=== PATIENT | male | born 2000 | race African-American/Black ===

== ENCOUNTER → 2019-01-08 | Outpatient (CLI) | payer MEDICAID ==
[2019-01-08 18:29] LABS: ALBUMIN 5.8 g/dL (3.5-5.0); ALKALINE PHOSPHATASE 126 U/L (38-126); ASPARTATE AMINO TRANSFERASE 39 U/L (17-59); BILIRUBIN,DIRECT 0.6 mg/dL (0.0-0.4); BILIRUBIN,TOTAL 3.4 mg/dL (0.2-1.3); BLOOD UREA NITROGEN 45 mg/dL (7-20); CALCIUM 10.9 mg/dL (8.4-10.2); CARBON DIOXIDE 28 mmol/L (22-30); CHLORIDE 86 mmol/L (98-107); GLUCOSE 105 mg/dL (75-110); POTASSIUM 3.7 mmol/L (3.6-5.0); TOTAL PROTEIN 9.9 g/dL (6.3-8.2)
[2019-01-08 18:31] LABS: ANION GAP 25 (5-19)
[2019-01-08 19:30] LABS: CHLAM PCR DETECTED (NOT DETECT)
[2019-01-09 17:28] LABS: ABSOLUTE BASOPHILS # (AUTO) 0.1 10^3/uL (0.0-0.2); ABSOLUTE LYMPHOCYTES (AUTO) 2.5 10^3/uL (0.5-4.7); ABSOLUTE MONOCYTES (AUTO) 1.1 10^3/uL (0.1-1.4); BASOPHILS % (AUTO) 1.2 % (0-2); EOSINOPHILS % (AUTO) 0.2 % (0-6); HEMATOCRIT 59.8 % (37.9-51.0); LYMPHOCYTES % (AUTO) 32.6 % (13-45); MEAN CORPUSCULAR HEMOGLOBIN 29.6 pg (27.0-33.4); MEAN CORPUSCULAR HGB CONC 34.5 g/dL (32.0-36.0); MEAN CORPUSCULAR VOLUME 86 fl (80-97); MONOCYTES % (AUTO) 14.8 % (3-13); PLATELET COUNT 344 10^3/uL (150-450); RED BLOOD COUNT 6.98 10^6/uL (4.35-5.55); RED CELL DISTRIBUTION WIDTH 13.4 % (11.5-14.0); SEGMENTED NEUTROPHILS % (AUTO) 51.2 % (42-78); TOTAL CELLS COUNTED % (AUTO) 100 %; WHITE BLOOD COUNT 7.7 10^3/uL (4.0-10.5)
[2019-01-12 12:14] LABS: HEMOGLOBIN 20.6 g/dL (13.5-17.0)
== END ==
LOC: OD 13:38
PROVIDERS: ATTEND Nurse Practitioner Acute Care
DX: N52.8 Other male erectile dysfunction (principal); R11.2 Nausea with vomiting, unspecified
CPT/HCPCS: 36415; 80053; 83690; 85025; 87491; 87591

== ENCOUNTER → 2019-01-12 | Outpatient (CLI) | payer MEDICAID ==
[2019-01-12 15:41] LABS: ANION GAP 9 (5-19); BLOOD UREA NITROGEN 10 mg/dL (7-20); CALCIUM 9.1 mg/dL (8.4-10.2); CARBON DIOXIDE 25 mmol/L (22-30); CHLORIDE 102 mmol/L (98-107); GLUCOSE 87 mg/dL (75-110); POTASSIUM 4.5 mmol/L (3.6-5.0)
== END ==
LOC: OD 14:27
PROVIDERS: ATTEND Nurse Practitioner Acute Care
DX: R11.2 Nausea with vomiting, unspecified (principal)
CPT/HCPCS: 36415; 80048

== ENCOUNTER 2019-04-30 21:49 | Emergency (ER) | payer MEDICAID ==
[2019-04-30] MEDS ORDERED: ONDANSETRON 4 MG TAB.RAPDIS PO ONE (22:33)
[2019-04-30] MEDS ORDERED: NORMAL SALINE 1000 ML 1,000 ML IV PRN (22:33)
--- NOTE | 2019-04-30 22:34 | ER Document Report ---
ED Medical Screen (RME) - General Chief Complaint: Nausea/Vomiting Stated Complaint: VOMITING AND STOMACH PAIN Time Seen by Provider: 04/30/19 22:32 Primary Care Provider: KARON LEONARD NP [Primary Care Provider] - Follow up as needed TRAVEL OUTSIDE OF THE [place] IN LAST 30 DAYS: No - HPI Notes: 04/30/19 22:33 Patient is a 18-year-old male no significant past medical history presents complaint of having nausea, vomiting, and generalized abdominal pain that began today. Denies drug allergies. No fever, chest pain, shortness of breath, dysuria. I have treated and performed a rapid initial assessment of this patient. A comprehensive ED assessment and evaluation of the patient, analysis of test results and completion of medical decision making process will be conducted by additional ED providers. PHYSICAL EXAMINATION: GENERAL: Well-appearing, well-nourished and in no acute distress. A&Ox4. Answers questions appropriately. Abdomen: Limited exam in triage, mild generalized tenderness noted. Abdomen is soft. - Related Data Allergies/Adverse Reactions: No Known Allergies Allergy (Verified 01/12/19 15:13) Past Medical History - Social History Frequency of alcohol use: None Drug Abuse: Marijuana Renal/ Medical History: Denies: Hx Peritoneal Dialysis Musculoskeltal Medical History: Reports Hx Musculoskeletal Trauma Psychiatric Medical History: Reports: Hx Attention Deficit Hyperactivity Disorder Traumatic Medical History: Reports: Hx Fractures - open ankle fracture Past Surgical History: Reports: Hx Orthopedic Surgery - ORIF ankle - Immunizations Immunizations up to date: Yes Hx Diphtheria, Pertussis, Tetanus Vaccination: Yes Physical Exam - Vital signs Vitals: Temp Pulse Resp BP Pulse Ox 98.4 F 65 20 139/62 H 100 04/30/19 22:01 04/30/19 22:01 04/30/19 22:01 04/30/19 22:01 04/30/19 22:01 Course - Vital Signs Vital signs: Temp Pulse Resp BP Pulse Ox 98.4 F 65 20 139/62 H 100 04/30/19 22:01 04/30/19 22:01 04/30/19 22:01 04/30/19 22:01 04/30/19 22:01 Doctor's Discharge - Discharge Referrals: KARON LEONARD NP [Primary Care Provider] - Follow up as needed
[2019-04-30 23:49] LABS: URINE AMPHETAMINES SCREEN NEGATIVE; URINE BARBITURATES SCREEN NEGATIVE; URINE BENZODIAZEPINES SCREEN NEGATIVE; URINE COCAINE SCREEN NEGATIVE; URINE MARIJUANA (THC) SCREEN UNCONFIRMED POSITIVE; URINE METHADONE SCREEN NEGATIVE; URINE PHENCYCLIDINE SCREEN NEGATIVE
[2019-04-30 23:59] LABS: APPEARANCE,URINE SLIGHTLY-CLOUDY; BILIRUBIN,URINE NEGATIVE (NEGATIVE); COLOR,URINE YELLOW; GLUCOSE, URINE NEGATIVE (NEGATIVE); KETONES,URINE 20 mg/dL (NEGATIVE); PROTEIN,URINE 100 mg/dL (NEGATIVE); URINE SPECIFIC GRAVITY 1.031
[2019-05-01 00:06] LABS: ABSOLUTE BASOPHILS # (AUTO) 0.1 10^3/uL (0.0-0.2); ABSOLUTE LYMPHOCYTES (AUTO) 1.3 10^3/uL (0.5-4.7); ABSOLUTE MONOCYTES (AUTO) 1.2 10^3/uL (0.1-1.4); ABSOLUTE NEUT (AUTO) 12.3 10^3/uL (1.7-8.2); BASOPHILS % (AUTO) 0.6 % (0-2); EOSINOPHILS % (AUTO) 0.1 % (0-6); HEMATOCRIT 45.4 % (37.9-51.0); HEMOGLOBIN 16.1 g/dL (13.5-17.0); LYMPHOCYTES % (AUTO) 8.7 % (13-45); MEAN CORPUSCULAR HGB CONC 35.5 g/dL (32.0-36.0); MEAN CORPUSCULAR VOLUME 87 fl (80-97); MONOCYTES % (AUTO) 8.1 % (3-13); PLATELET COUNT 247 10^3/uL (150-450); RED CELL DISTRIBUTION WIDTH 13.3 % (11.5-14.0); SEGMENTED NEUTROPHILS % (AUTO) 82.5 % (42-78); TOTAL CELLS COUNTED % (AUTO) 100 %; WHITE BLOOD COUNT 14.9 10^3/uL (4.0-10.5)
[2019-05-01 00:23] LABS: ALBUMIN 5.4 g/dL (3.5-5.0); ALKALINE PHOSPHATASE 92 U/L (38-126); ANION GAP 16 (5-19); ASPARTATE AMINO TRANSFERASE 41 U/L (17-59); BILIRUBIN,DIRECT 0.2 mg/dL (0.0-0.4); BILIRUBIN,TOTAL 1.1 mg/dL (0.2-1.3); BLOOD UREA NITROGEN 13 mg/dL (7-20); CALCIUM 10.4 mg/dL (8.4-10.2); CARBON DIOXIDE 22 mmol/L (22-30); CHLORIDE 102 mmol/L (98-107); GLUCOSE 135 mg/dL (75-110); POTASSIUM 4.2 mmol/L (3.6-5.0); TOTAL PROTEIN 8.6 g/dL (6.3-8.2)
[2019-05-01] MEDS ORDERED: METOCLOPRAMIDE HCL INJ/PF 10 MG/2 ML SDV IV ONE (02:23)
[2019-05-01] MEDS ORDERED: DIPHENHYDRAMINE HCL 50 MG/ML VIAL IV ONE (02:23)
--- NOTE | 2019-05-01 02:27 | ER Document Report ---
ED GI/ - General Chief Complaint: Nausea/Vomiting Stated Complaint: VOMITING AND STOMACH PAIN Time Seen by Provider: 04/30/19 22:32 Primary Care Provider: KARON LEONARD NP [NURSE PRACTITIONER] - Follow up in 3-5 days Notes: Patient is a 18-year-old male that comes emergency department for chief complaint of vomiting and abdominal pain that started today. Patient states she has vomited over 10 times. He has had a couple of loose stools. He reports some generalized abdominal pain especially when vomiting. He denies fever or obvious sick contacts. He denies chest pain, shortness of breath, flank pain. Patient states she has had orthopedic surgery, has a history of ADHD, takes no daily medications. He states he smokes marijuana intermittently but not daily, he denies recreational drugs otherwise, he denies alcohol. TRAVEL OUTSIDE OF THE [place] IN LAST 30 DAYS: No - Related Data Allergies/Adverse Reactions: No Known Allergies Allergy (Verified 01/12/19 15:13) Past Medical History - General Information source: Patient, Relative - Social History Smoking Status: Never Smoker Frequency of alcohol use: None Drug Abuse: Marijuana Lives with: Family Family History: Reviewed & Not Pertinent Patient has suicidal ideation: No Patient has homicidal ideation: No Renal/ Medical History: Denies: Hx Peritoneal Dialysis Musculoskeletal Medical History: Reports Hx Musculoskeletal Trauma Psychiatric Medical History: Reports: Hx Attention Deficit Hyperactivity Disorder Traumatic Medical History: Reports: Hx Fractures - open ankle fracture Past Surgical History: Reports: Hx Orthopedic Surgery - ORIF ankle - Immunizations Immunizations up to date: Yes Hx Diphtheria, Pertussis, Tetanus Vaccination: Yes Review of Systems - Review of Systems Constitutional: No symptoms reported EENT: No symptoms reported Cardiovascular: No symptoms reported Respiratory: No symptoms reported Gastrointestinal: See HPI Genitourinary: No symptoms reported Male Genitourinary: No symptoms reported Musculoskeletal: No symptoms reported Skin: No symptoms reported Hematologic/Lymphatic: No symptoms reported Neurological/Psychological: No symptoms reported Physical Exam - Vital signs Vitals: Temp Pulse Resp BP Pulse Ox 98.4 F 65 20 139/62 H 100 04/30/19 22:01 04/30/19 22:01 04/30/19 22:01 04/30/19 22:01 04/30/19 22:01 - Notes Notes: GENERAL: Alert, interacts well. Slightly restless HEAD: Normocephalic, atraumatic. EYES: Pupils equal, round, and reactive to light. Extraocular movements intact. ENT: Oral mucosa dry, tongue midline. Oropharynx unremarkable. Airway patent. LUNGS: Clear to auscultation bilaterally, no wheezes, rales, or rhonchi. No respiratory distress. HEART: Regular rate and rhythm. No murmur ABDOMEN: Soft, non-tender. Non-distended. Bowel sounds present in all 4 quadrants. GENITOURINARY: Deferred EXTREMITIES: Moves all 4 extremities spontaneously. No edema, normal radial and dorsalis pedis pulses bilaterally. No cyanosis. BACK: no cervical, thoracic, lumbar midline tenderness. No saddle anesthesia, normal distal neurovascular exam. Moves all extremities in full range of motion. NEUROLOGICAL: Alert and oriented x3. Normal speech. Cranial nerves II through XII grossly intact. PSYCH: Slightly restless SKIN: Warm, dry, normal turgor. No rashes or lesions noted. Course - Re-evaluation Re-evalutation: Patient was given IV fluids, nausea medication, after this his initial restlessness resolved, he fell asleep. On arousal he states he feels much better and he is ready to go home. He tolerated p.o. challenge without any difficulty. CBC shows some leukocytosis, chemistry nonspecific, urine shows elevated specific gravity. Urine drug screen unremarkable except for marijuana but patient states he does not smoke frequently and his nausea was treated quite easily. I suspect this is viral, his abdomen is very benign and soft, he is very well-appearing. Discussed treatments, follow-up, return precautions with patient and significant other. They state appreciation and agreement. Stable and well-appearing at time of discharge. - Vital Signs Vital signs: Temp Pulse Resp BP Pulse Ox 97.8 F 56 L 18 150/90 H 99 05/01/19 04:41 05/01/19 04:41 05/01/19 04:41 05/01/19 04:41 05/01/19 04:41 - Laboratory Result Diagrams: 04/30/19 23:30 04/30/19 23:30 Laboratory results interpreted by me: 04/30/19 04/30/19 04/30/19 22:40 23:30 23:30 WBC 14.9 H Lymph % (Auto) 8.7 L Absolute Neuts (auto) 12.3 H Seg Neutrophils % 82.5 H Glucose 135 H Calcium 10.4 H Total Protein 8.6 H Albumin 5.4 H Urine Protein 100 H Urine Ketones 20 H Urine Urobilinogen 2.0 H Discharge - Discharge Clinical Impression: Dehydration Nausea and vomiting Qualifiers: Vomiting type: unspecified Vomiting Intractability: non-intractable Qualified Code(s): R11.2 - Nausea with vomiting, unspecified Condition: Stable Disposition: HOME, SELF-CARE Additional Instructions: Based on your evaluation and work-up I suspect this is viral. This should simply resolve with time. Take the nausea medication if needed, start with bland food, take the famotidine to help your recovery. Rest. Follow-up with primary care. Return if you worsen including severe abdominal pain, uncontrolled vomiting, spiking fever, or any other concerning symptoms. Prescriptions: Famotidine [Pepcid 20 mg Tablet] 20 mg PO BID #12 tablet Promethazine HCl [Phenergan 25 mg Tablet] 25 mg PO Q6H PRN #15 tablet PRN Reason: Referrals: KARON LEONARD NP [NURSE PRACTITIONER] - Follow up in 3-5 days
[2019-05-01] MEDS ORDERED: FAMOTIDINE 20 MG TABLET PO ONE (02:53)
[2019-05-01] MEDS ORDERED: ONDANSETRON ODT 4 MG TAB (6 TAB/ER DISP) PO PRN (04:18)
[2019-05-01 04:41] VITALS: BP 150/90
== END 2019-05-01 04:41 | disposition home or self-care (01) ==
LOC: ER 21:49
DX: R11.2 Nausea with vomiting, unspecified (principal); E86.0 Dehydration; R10.84 Generalized abdominal pain; R19.4 Change in bowel habit; F12.10 Cannabis abuse, uncomplicated; D72.829 Elevated white blood cell count, unspecified
CPT/HCPCS: 99283; 96374; 96375; 36415; 83690; 85025; 80053; 81001; 80307; J3490; J1200; S0119; J2765; J7030

== ENCOUNTER 2019-05-02 20:28 | Emergency (ER) | payer MEDICAID ==
[2019-05-02] MEDS ORDERED: METOCLOPRAMIDE HCL INJ/PF 10 MG/2 ML SDV IV ONE (20:40)
[2019-05-02] MEDS ORDERED: NORMAL SALINE 1000 ML 1,000 ML IV ONE ×2 (20:40→22:57)
--- NOTE | 2019-05-02 20:41 | ER Document Report ---
ED Medical Screen (RME) - General Chief Complaint: Nausea/Vomiting/Diarrhea Stated Complaint: VOMITING BLOOD,CRAMPING Time Seen by Provider: 05/02/19 20:37 Notes: HPI: 18-year-old male who was seen here 2 days ago for vomiting and abdominal discomfort presenting again to the emergency department for vomiting and abdominal discomfort. Patient states that he has been taking Pepcid and Zofran that he was prescribed without resolution of the vomiting threw up at least 5-6 times today, states he sees a slight blood tinge after vomiting. States he is also had diarrhea today. No definitive fever. I have greeted and performed a rapid initial assessment of this patient. A comprehensive ED assessment and evaluation of the patient, analysis of test results and completion of the medical decision making process will be conducted by additional ED providers PHYSICAL EXAMINATION: GENERAL: Well-appearing, well-nourished and in mild acute distress. HEAD: Atraumatic, normocephalic. EYES: sclera anicteric, conjunctiva are normal. ENT: Moist mucous membranes. NECK: Normal range of motion LUNGS: Normal work of breathing, clear to auscultation HEART: 2+ radial pulses bilaterally, regular rate and rhythm ABD: limited by positioning for exam in triage. EXTREMITIES: no pitting or edema. No cyanosis. NEUROLOGICAL: No focal neurological deficits. Moves all extremities spontaneously and on command. PSYCH: Normal mood, normal affect. SKIN: Warm, Dry, normal turgor, no rashes or lesions noted. TRAVEL OUTSIDE OF THE [place] IN LAST 30 DAYS: No - Related Data Allergies/Adverse Reactions: No Known Allergies Allergy (Verified 01/12/19 15:13) Past Medical History - Social History Frequency of alcohol use: None Drug Abuse: None Renal/ Medical History: Denies: Hx Peritoneal Dialysis Musculoskeltal Medical History: Reports Hx Musculoskeletal Trauma Psychiatric Medical History: Reports: Hx Attention Deficit Hyperactivity Disorder Traumatic Medical History: Reports: Hx Fractures - open ankle fracture Past Surgical History: Reports: Hx Orthopedic Surgery - ORIF ankle - Immunizations Immunizations up to date: Yes Hx Diphtheria, Pertussis, Tetanus Vaccination: Yes Physical Exam - Vital signs Vitals: Temp Pulse Resp BP Pulse Ox 98.8 F 70 18 109/67 95 05/02/19 20:34 05/02/19 20:34 05/02/19 20:34 05/02/19 20:34 05/02/19 20:34 Course - Vital Signs Vital signs: Temp Pulse Resp BP Pulse Ox 98.8 F 70 18 109/67 95 05/02/19 20:34 05/02/19 20:34 05/02/19 20:34 05/02/19 20:34 05/02/19 20:34
[2019-05-02 21:04] LABS: ABSOLUTE LYMPHOCYTES (AUTO) 1.4 10^3/uL (0.5-4.7); ABSOLUTE MONOCYTES (AUTO) 0.7 10^3/uL (0.1-1.4); BASOPHILS % (AUTO) 0.5 % (0-2); HEMATOCRIT 46.4 % (37.9-51.0); HEMOGLOBIN 16.6 g/dL (13.5-17.0); LYMPHOCYTES % (AUTO) 16.9 % (13-45); MEAN CORPUSCULAR HEMOGLOBIN 31.3 pg (27.0-33.4); MEAN CORPUSCULAR HGB CONC 35.8 g/dL (32.0-36.0); MEAN CORPUSCULAR VOLUME 88 fl (80-97); PLATELET COUNT 226 10^3/uL (150-450); RED BLOOD COUNT 5.31 10^6/uL (4.35-5.55); RED CELL DISTRIBUTION WIDTH 13.5 % (11.5-14.0); SEGMENTED NEUTROPHILS % (AUTO) 73.6 % (42-78); TOTAL CELLS COUNTED % (AUTO) 100 %; WHITE BLOOD COUNT 8.2 10^3/uL (4.0-10.5)
[2019-05-02 21:21] LABS: ALBUMIN 5.4 g/dL (3.5-5.0); ALKALINE PHOSPHATASE 85 U/L (38-126); ANION GAP 15 (5-19); ASPARTATE AMINO TRANSFERASE 45 U/L (17-59); BILIRUBIN,DIRECT 0.2 mg/dL (0.0-0.4); BILIRUBIN,TOTAL 1.4 mg/dL (0.2-1.3); BLOOD UREA NITROGEN 20 mg/dL (7-20); CALCIUM 10.1 mg/dL (8.4-10.2); CARBON DIOXIDE 28 mmol/L (22-30); CHLORIDE 98 mmol/L (98-107); GLUCOSE 85 mg/dL (75-110); TOTAL PROTEIN 8.7 g/dL (6.3-8.2)
[2019-05-02] MEDS ORDERED: HALOPERIDOL LACTATE INJ 5 MG/1 ML VIAL IV ONE (23:02)
[2019-05-02] MEDS ORDERED: PANTOPRAZOLE SODIUM 40 MG VIAL IV ONE (23:04)
--- NOTE | 2019-05-02 23:09 | ER Document Report ---
ED General - General Chief Complaint: Nausea/Vomiting/Diarrhea Stated Complaint: VOMITING BLOOD,CRAMPING Time Seen by Provider: 05/02/19 20:37 TRAVEL OUTSIDE OF THE [place] IN LAST 30 DAYS: No - HPI Notes: 18-year-old male who was seen here 2 days ago for vomiting and abdominal discomfort presenting again to the emergency department for vomiting and abdominal discomfort. Patient states that he has been taking Pepcid and Zofran that he was prescribed without resolution of the vomiting threw up at least 5-6 times today, states he sees a slight blood tinge after vomiting. States he is also had diarrhea today. No definitive fever. Review of prior records shows patient's urine was positive for THC on prior visit. Review of past ED records shows he has been here several times previously for similar presentation with dehydration. Patient denies prior surgery. He takes no long-term medications. There are no known allergies. He denies abuse of alcohol. - Related Data Allergies/Adverse Reactions: No Known Allergies Allergy (Verified 01/12/19 15:13) Past Medical History - General Information source: Patient, Relative, [facility] Records - Social History Smoking Status: Former Smoker Frequency of alcohol use: None Drug Abuse: None Family History: Reviewed & Not Pertinent Patient has suicidal ideation: No Patient has homicidal ideation: No Renal/ Medical History: Denies: Hx Peritoneal Dialysis Musculoskeletal Medical History: Reports Hx Musculoskeletal Trauma Psychiatric Medical History: Reports: Hx Attention Deficit Hyperactivity Disorder Traumatic Medical History: Reports: Hx Fractures - open ankle fracture Past Surgical History: Reports: Hx Orthopedic Surgery - ORIF ankle - Immunizations Immunizations up to date: Yes Hx Diphtheria, Pertussis, Tetanus Vaccination: Yes Review of Systems - Review of Systems Notes: Constitutional: Negative for fever. HENT: Negative for sore throat. Eyes: Negative for visual changes. Cardiovascular: Negative for chest pain. Respiratory: Negative for shortness of breath. Gastrointestinal: As per HPI. Genitourinary: Negative for dysuria. Musculoskeletal: Negative for back pain. Skin: Negative for rash. Neurological: Negative for headaches, weakness or numbness. 10 point ROS negative except as marked above and in HPI. Physical Exam - Vital signs Vitals: Temp Pulse Resp BP Pulse Ox 98.8 F 70 18 109/67 95 05/02/19 20:34 05/02/19 20:34 05/02/19 20:34 05/02/19 20:34 05/02/19 20:34 - Notes Notes: GENERAL: Slender male who is very difficult to arouse very sleepy. SKIN: Good turgor no rashes. HEAD: Normocephalic atraumatic. EYES: PERRLA. EOMI. Conjunctivae and sclerae clear. EARS: CANALS AND TMS CLEAR. NOSE: CLEAR. MOUTH: Moist mucosa. Good dentition. No stridor or edema. No drooling. NECK: Supple. No masses or thyromegaly. No adenopathy. Carotids 2+ without bruits. No JVD. BACK: Symmetrical without tenderness. CHEST: Respirations unlabored. Breath sounds clear and symmetrical. HEART: Regular rhythm. No murmur gallop or rub. ABDOMEN: Mild bilateral lower abdominal tenderness. Soft without masses, organomegaly or rebound. Bowel sounds normally active. No bruits. GENITALIA: Deferred. EXTREMITIES: No edema. No calf tenderness. Cap refill less than 1.5 seconds. Dorsalis pedis and posterior tibial pulses 3+ and symmetrical. NEUROLOGICAL: GCS 14. Sleepy but arousable and oriented x3. Fluent speech. Cranial nerves II through XII intact. Sensorimotor and cerebellar normal. Normal tone. PSYCHIATRIC: Appropriate affect. Course - Re-evaluation Re-evalutation: 05/03/19 03:20 CT abdomen pelvis with contrast was negative. Patient's urine again tested positive for cannabis. His emesis is been controlled with Haldol but he is extremely sedated at this point. He will get some additional IV fluids will be observed until he is able to walk without assistance and tolerate p.o. fluids at which time we anticipate discharge. I spoke with the family explained the n ature of this disorder and recommended he abstain from all further use of cannabis. - Vital Signs Vital signs: Temp Pulse Resp BP Pulse Ox 98.8 F 70 18 109/67 95 05/02/19 20:34 05/02/19 20:34 05/02/19 20:34 05/02/19 20:34 05/02/19 20:34 - Laboratory Result Diagrams: 05/02/19 20:50 05/02/19 20:50 Laboratory results interpreted by me: 05/02/19 05/02/19 05/03/19 20:50 20:50 00:40 Total Bilirubin 1.4 H Total Protein 8.7 H Albumin 5.4 H Urine Protein 100 H Urine Ketones 80 H Urine Urobilinogen 2.0 H Acetaminophen < 10 L Discharge - Discharge Clinical Impression: Cannabis hyperemesis syndrome concurrent with and due to cannabis abuse, Dehydration Condition: Stable Disposition: HOME, SELF-CARE Additional Instructions: Do not smoke marijuana. Referrals: [facility] [Provider Group] - Follow up as needed
--- NOTE | 2019-05-03 00:54 | RADIOLOGY REPORT (SQ) ---
EXAM DESCRIPTION: CT scan of the abdomen and pelvis with IV contrast CLINICAL HISTORY: 18 years Male; abd. pain TECHNIQUE: CT of the abdomen and pelvis with intravenous contrast. Delayed imaging was also performed. All CT scans at this facility use dose modulation, iterative reconstruction, and/or weight based dosing when appropriate to reduce radiation dose to as low as reasonably achievable. This exam was performed according to our department optimization program which includes automated exposure control, adjustment of the mA and/or kv according to patient size and/or use of iterative reconstruction technique. COMPARISON: None. FINDINGS: Lower chest:The lung bases are clear. The visualized portion of heart and great vessels are normal. Abdomen: Liver and biliary tree:The liver and gallbladder appear normal. Portal vein and hepatic veins are patent. No biliary dilatation. Pancreas: Normal Spleen:Within normal limits Kidneys: Kidneys are normal in size, shape and position. No stones. No mass or hydronephrosis. Symmetric renal enhancement bilaterally. Adrenal glands:Within normal limits Vascular structures:Within normal limits Retroperitoneum: No mass or lymphadenopathy Abdominal wall: normal GI:Bowel is of normal caliber. No focal bowel wall thickening. No obstruction. Appendix: The appendix appears normal. General: No free air. No free fluid Pelvis: Lymph nodes: No mass or lymphadenopathy Bladder: The bladder is mostly empty. Pelvis: No pelvic mass or adenopathy. Bones: No acute bone findings. IMPRESSION: Unremarkable CT scan of the abdomen and pelvis. No acute process.
[2019-05-03 00:59] LABS: APPEARANCE,URINE SLIGHTLY-CLOUDY; BILIRUBIN,URINE NEGATIVE (NEGATIVE); COLOR,URINE YELLOW; GLUCOSE, URINE NEGATIVE (NEGATIVE); KETONES,URINE 80 mg/dL (NEGATIVE); PROTEIN,URINE 100 mg/dL (NEGATIVE); URINE SPECIFIC GRAVITY 1.038
[2019-05-03 01:11] LABS: URINE AMPHETAMINES SCREEN NEGATIVE; URINE BARBITURATES SCREEN NEGATIVE; URINE BENZODIAZEPINES SCREEN NEGATIVE; URINE COCAINE SCREEN NEGATIVE; URINE METHADONE SCREEN NEGATIVE; URINE PHENCYCLIDINE SCREEN NEGATIVE
[2019-05-03 01:15] LABS: URINE MARIJUANA (THC) SCREEN UNCONFIRMED POSITIVE
[2019-05-03] MEDS: NORMAL SALINE 1000 ML 1,000 ML IV PRN ×2 (01:44→05:04)
--- NOTE | 2019-05-03 05:39 | ER Document Report ---
Doctor's Note Notes: 05/03/19 05:38 Patient was evaluated by this MD at 0536 hrs. Patient is arousable and subsequently alert. Current vital signs are stable. Patient will be discharged home.
[2019-05-03 05:53] VITALS: BP 125/57
== END 2019-05-03 05:45 | disposition home or self-care (01) ==
LOC: ER 20:28
DX: F12.188 Cannabis abuse with other cannabis-induced disorder (principal); R11.10 Vomiting, unspecified; E86.0 Dehydration; R19.7 Diarrhea, unspecified; R10.9 Unspecified abdominal pain
CPT/HCPCS: 99284; 96361; 96374; 96375; 36415; 80307 ×2; 85025; 80053; 81001; 74177; J1630; J2765; C9113; J7030 ×2

== ENCOUNTER 2019-06-04 16:21 | Emergency (ER) | payer MEDICAID, OTHER ==
[2019-06-04 17:32] LABS: ABSOLUTE EOSINOPHILS # (AUTO) 0.1 10^3/uL (0.0-0.6); ABSOLUTE LYMPHOCYTES (AUTO) 1.3 10^3/uL (0.5-4.7); ABSOLUTE MONOCYTES (AUTO) 0.5 10^3/uL (0.1-1.4); ABSOLUTE NEUT (AUTO) 4.2 10^3/uL (1.7-8.2); BASOPHILS % (AUTO) 0.7 % (0-2); HEMATOCRIT 43.3 % (37.9-51.0); HEMOGLOBIN 15.3 g/dL (13.5-17.0); LYMPHOCYTES % (AUTO) 20.6 % (13-45); MEAN CORPUSCULAR HEMOGLOBIN 30.9 pg (27.0-33.4); MEAN CORPUSCULAR HGB CONC 35.4 g/dL (32.0-36.0); MEAN CORPUSCULAR VOLUME 87 fl (80-97); MONOCYTES % (AUTO) 7.9 % (3-13); PLATELET COUNT 194 10^3/uL (150-450); RED BLOOD COUNT 4.95 10^6/uL (4.35-5.55); RED CELL DISTRIBUTION WIDTH 13.4 % (11.5-14.0); SEGMENTED NEUTROPHILS % (AUTO) 69.8 % (42-78); TOTAL CELLS COUNTED % (AUTO) 100 %; WHITE BLOOD COUNT 6.1 10^3/uL (4.0-10.5)
[2019-06-04 17:45] LABS: ALBUMIN 5.1 g/dL (3.5-5.0); ALKALINE PHOSPHATASE 97 U/L (38-126); ANION GAP 6 (5-19); ASPARTATE AMINO TRANSFERASE 41 U/L (17-59); BILIRUBIN,TOTAL 1.1 mg/dL (0.2-1.3); BLOOD UREA NITROGEN 11 mg/dL (7-20); CALCIUM 10.1 mg/dL (8.4-10.2); CARBON DIOXIDE 26 mmol/L (22-30); CHLORIDE 106 mmol/L (98-107); GLUCOSE 119 mg/dL (75-110); POTASSIUM 4.4 mmol/L (3.6-5.0)
[2019-06-04] MEDS ORDERED: NORMAL SALINE 1000 ML 1,000 ML IV ONE (18:41)
[2019-06-04 18:59] LABS: APPEARANCE,URINE SLIGHTLY-CLOUDY; BILIRUBIN,URINE NEGATIVE (NEGATIVE); COLOR,URINE YELLOW; GLUCOSE, URINE NEGATIVE (NEGATIVE); KETONES,URINE 20 mg/dL (NEGATIVE); LEUKOCYTE ESTERASE,URINE NEGATIVE (NEGATIVE); NITRITE,URINE NEGATIVE (NEGATIVE); PROTEIN,URINE 30 mg/dL (NEGATIVE); URINE SPECIFIC GRAVITY 1.026; UROBILINOGEN,URINE NEGATIVE mg/dL (<2.0)
[2019-06-04] MEDS ORDERED: ONDANSETRON HCL INJ/PF 4 MG/2 ML SDV IV ONE (19:14)
[2019-06-04] MEDS ORDERED: LORAZEPAM INJ 2 MG/1 ML VIAL IV ONE (19:15)
--- NOTE | 2019-06-04 20:24 | ER Document Report ---
ED General - General Chief Complaint: Vomiting Stated Complaint: POSSIBLE DEHYDRATION/VOMITING Time Seen by Provider: 06/04/19 18:15 TRAVEL OUTSIDE OF THE [place] IN LAST 30 DAYS: No - HPI Notes: 18-year-old male history of heavy marijuana use presents with 1 day of generalized but mostly epigastric abdominal pain associated with numerous episodes of nonbloody nonbilious emesis. Patient says he had 1 previous episode about 2 months ago says he was treated by . does not know what they did and it resolved no episodes since. Patient denies any constipation, diarrhea, melena, bright red blood per rectum, urinary symptoms, genital symptoms, fever, prior abdominal surgery, other drug use, alcohol use, trauma, dizziness, syncope, cough/URI symptoms, sick contacts, myalgia. - Related Data Allergies/Adverse Reactions: No Known Allergies Allergy (Verified 01/12/19 15:13) Past Medical History - Social History Smoking Status: Never Smoker Drug Abuse: Marijuana Family History: Reviewed & Not Pertinent Patient has suicidal ideation: No Patient has homicidal ideation: No Renal/ Medical History: Denies: Hx Peritoneal Dialysis Musculoskeletal Medical History: Reports Hx Musculoskeletal Trauma Psychiatric Medical History: Reports: Hx Attention Deficit Hyperactivity Disorder Traumatic Medical History: Reports: Hx Fractures - open ankle fracture Past Surgical History: Reports: Hx Orthopedic Surgery - ORIF ankle - Immunizations Immunizations up to date: Yes Hx Diphtheria, Pertussis, Tetanus Vaccination: Yes Review of Systems - Review of Systems Notes: REVIEW OF SYSTEMS: CONSTITUTIONAL : Denies fever, chills, or sweats. EENT: Denies recent cold/sinus symptoms, denies throat pain CARDIOVASCULAR: Denies chest pain, HATTIE RESPIRATORY: Denies cough, denies shortness of breath. GASTROINTESTINAL: +abdominal pain, +nausea/vomiting. GENITOURINARY: Denies difficulty urinating, painful urination. FEMALE GENITOURINARY: Denies abnormal vaginal bleeding, vaginal discharge. MUSCULOSKELETAL: Denies neck pain, back pain. SKIN: Denies rash or skin lesions. HEMATOLOGIC : Denies easy bruising or bleeding. LYMPHATIC: Denies swollen, enlarged glands. NEUROLOGICAL: Denies headache, denies change in gait. PSYCHIATRIC: Denies anxiety or stress or depression. Physical Exam - Vital signs Vitals: Temp Pulse Resp BP Pulse Ox 98.2 F 56 L 12 138/99 H 100 06/04/19 16:25 06/04/19 16:25 06/04/19 16:25 06/04/19 16:25 06/04/19 16:25 - Notes Notes: PHYSICAL EXAMINATION: GENERAL: Well-appearing, well-nourished and in no acute distress. HEAD: Atraumatic, normocephalic. EYES: Pupils equal round and appropriate constriction, sclera anicteric, conjunctiva are normal. ENT: nares patent, moist mucous membranes. NECK: Normal range of motion, supple without lymphadenopathy LUNGS: Breath sounds clear to auscultation bilaterally and equal. No wheezes rales or rhonchi. HEART: Regular rate and rhythm without murmurs ABDOMEN: Soft, nontender, no guarding, no masses, no surgical scars, no rebound, no CVAT EXTREMITIES: Normal range of motion, no pitting or edema. No cyanosis. NEUROLOGICAL: Awake, alert, conversing appropriately, moves all extremities spontaneously. PSYCH: Normal mood, normal affect. SKIN: Warm, Dry, normal turgor, no rashes or lesions noted. Course - Re-evaluation Re-evalutation: 06/04/19 20:23 1 day of epigastric abdominal pain and vomiting and otherwise healthy male with history of heavy marijuana abuse. No signs of acute dehydration clinically, patient very well-appearing, benign abdominal exam, moist mucous membranes. Will rule out pancreatitis, electrolyte abnormalities, presentation most likely secondary to marijuana related hyperemesis syndrome. Will administer fluids, Zofran, and reassess. 06/04/19 21:49 Re-upon reevaluation patient sleeping comfortably in stretcher, no vomiting throughout patient's time in the ED, repeat abdominal exam remained benign, no emergent findings on labs, and patient states he feels much better after interventions. Patient tolerated p.o. in the ED. Educated patient extensively on ceasing marijuana use and importance of outpatient follow-up and gave extensive return to ED precautions which he demonstrated understanding of. - Vital Signs Vital signs: Temp Pulse Resp BP Pulse Ox 98.4 F 52 L 18 116/59 L 100 06/04/19 20:14 06/04/19 20:14 06/04/19 20:14 06/04/19 20:14 06/04/19 20:14 - Laboratory Result Diagrams: 06/04/19 17:10 06/04/19 17:10 Laboratory results interpreted by me: 04/09/20 04/09/20 17:10 18:35 Glucose 119 H Albumin 5.1 H Urine Protein 30 H Urine Ketones 20 H Discharge - Discharge Clinical Impression: Vomiting Qualifiers: Vomiting Intractability: non-intractable Nausea presence: with nausea Condition: Good Disposition: HOME, SELF-CARE Additional Instructions: Vomiting Vomiting can be part of many illnesses. Most cases of vomiting are due to gastroenteritis, usually a viral infection in the intestinal tract. Yours is likely secondary to marijuana use. It is recommended that you immediately stop using marijuana to improve symptoms. There is no specific treatment. The disease will end by itself. For now, the main danger to your child is dehydration. During the first few hours of the illness, give clear liquids, such as Pedialyte. Try to give small quantities frequently, such as a teaspoon of liquid every minute or about an ounce of fluids every five to ten minutes. Medications may be prescribed by the physician for special cases. After an hour or two of fluids without vomiting, add rice cereal, toast, applesauce, or bananas and other more solid foods to the clear liquids. Call the physician or go to the hospital if vomiting increases or blood appears in the bowel movement or vomitus; if you fail to improve, or if signs of dehydration occur (no wet diapers for eight to twelve hours, tongue and mouth become dry, not acting as alert as usual). Follow-up with primary doctor within 1 week.
[2019-06-04 22:22] VITALS: BP 136/61
== END 2019-06-04 22:22 | disposition home or self-care (01) ==
LOC: ER 16:21
DX: R11.2 Nausea with vomiting, unspecified (principal); R10.13 Epigastric pain; F12.10 Cannabis abuse, uncomplicated
CPT/HCPCS: 99284; 96361; 96374; 96375; 36415; 83690; 85025; 80053; 81001; J2060; J2405; J7030

== ENCOUNTER 2019-06-05 22:38 | Emergency (ER) | payer MEDICAID ==
[2019-06-05] MEDS ORDERED: NORMAL SALINE 1000 ML 1,000 ML IV ONE (23:31)
[2019-06-05 23:32] LABS: APPEARANCE,URINE SLIGHTLY-CLOUDY; BILIRUBIN,URINE NEGATIVE (NEGATIVE); COLOR,URINE AMBER; GLUCOSE, URINE NEGATIVE (NEGATIVE); KETONES,URINE 20 mg/dL (NEGATIVE); URINE SPECIFIC GRAVITY 1.036
[2019-06-05] MEDS ORDERED: ONDANSETRON HCL INJ/PF 4 MG/2 ML SDV IV ONE (23:32)
[2019-06-05 23:33] LABS: LEUKOCYTE ESTERASE,URINE NEGATIVE (NEGATIVE); NITRITE,URINE NEGATIVE (NEGATIVE); PROTEIN,URINE 100 mg/dL (NEGATIVE)
[2019-06-05 23:46] LABS: ALBUMIN 5.6 g/dL (3.5-5.0); ALKALINE PHOSPHATASE 94 U/L (38-126); ANION GAP 10 (5-19); ASPARTATE AMINO TRANSFERASE 50 U/L (17-59); BILIRUBIN,TOTAL 1.7 mg/dL (0.2-1.3); BLOOD UREA NITROGEN 17 mg/dL (7-20); CALCIUM 10.5 mg/dL (8.4-10.2); CARBON DIOXIDE 30 mmol/L (22-30); CHLORIDE 100 mmol/L (98-107); GLUCOSE 109 mg/dL (75-110); POTASSIUM 3.7 mmol/L (3.6-5.0); TOTAL PROTEIN 8.9 g/dL (6.3-8.2)
--- NOTE | 2019-06-05 23:55 | ER Document Report ---
Entered by JESUS LOWE SCRIBE 06/05/19 [id number] Acting as scribe for:KATJA PINEDA IV, MD ED General - General Chief Complaint: Abdominal Pain Stated Complaint: VOMITING Time Seen by Provider: 06/05/19 23:20 Information source: Patient Notes: This 18-year-old male presents to the emergency department complaining of continual abdominal pain and vomiting since being seen at the ED yesterday. Patient explains that the abdominal pain is intermittent. Patient said that he was prescribed a medication but was "moving to fast yesterday and left it at the ED along with the discharge paper work". Patient reports associated nausea. Patient denies fever and diarrhea. TRAVEL OUTSIDE OF THE [place] IN LAST 30 DAYS: No - Related Data Allergies/Adverse Reactions: No Known Allergies Allergy (Verified 06/05/19 22:53) Past Medical History - General Information source: Patient - Social History Smoking Status: Current Every Day Smoker Cigarette use (# per day): Yes Chew tobacco use (# tins/day): No Frequency of alcohol use: Rare Drug Abuse: Marijuana Family History: Reviewed & Not Pertinent Patient has suicidal ideation: No Patient has homicidal ideation: No Musculoskeletal Medical History: Reports Hx Musculoskeletal Trauma Psychiatric Medical History: Reports: Hx Attention Deficit Hyperactivity Disorder Traumatic Medical History: Reports: Hx Fractures - open ankle fracture Past Surgical History: Reports: Hx Orthopedic Surgery - ORIF ankle - Immunizations Immunizations up to date: Yes Hx Diphtheria, Pertussis, Tetanus Vaccination: Yes Review of Systems - Review of Systems Constitutional: See HPI. denies: Fever EENT: No symptoms reported Cardiovascular: No symptoms reported Respiratory: No symptoms reported Gastrointestinal: See HPI, Abdominal pain, Nausea, Vomiting. denies: Diarrhea Genitourinary: No symptoms reported Male Genitourinary: No symptoms reported Musculoskeletal: No symptoms reported Skin: No symptoms reported Hematologic/Lymphatic: No symptoms reported Neurological/Psychological: No symptoms reported -: Yes All other systems reviewed and negative Physical Exam - Vital signs Vitals: Temp Pulse Resp BP Pulse Ox 97.8 F 70 16 132/69 H 100 06/05/19 22:42 06/05/19 22:42 06/05/19 22:42 06/05/19 22:42 06/05/19 22:42 - Notes Notes: Physical Exam: General: Alert, appears well. HEENT: Normocephalic. Atraumatic. PERRL. Extraocular movements intact. Oropharynx clear. Neck: Supple. Non-tender. Respiratory: No respiratory distress. Clear and equal breath sounds bilaterally. Cardiovascular: Regular rate and rhythm. Abdominal: Normal Inspection. Non-tender. No distension. Normal Bowel Sounds. Back: No gross abnormalities. Extremities: Moves all four extremities. Upper extremities: Normal inspection. Normal ROM. Lower extremities: Normal inspection. No edema. Normal ROM. Neurological: Normal cognition. AAOx4. Normal speech. Psychological: Normal affect. Normal Mood. Skin: Warm. Dry. Normal color. Course - Re-evaluation Re-evalutation: 06/06/19 01:49 Results of ED MSE discussed with patient. All questions were answered prior to discharge. Emergency signs and symptoms, reasons to return to the emergency department discussed with patient. - Vital Signs Vital signs: Temp Pulse Resp BP Pulse Ox 97.8 F 70 16 132/69 H 100 06/05/19 22:42 06/05/19 22:42 06/05/19 22:42 06/05/19 22:42 06/05/19 22:42 - Laboratory Result Diagrams: 06/05/19 23:39 06/05/19 23:06 Laboratory results interpreted by me: 06/05/19 06/05/19 06/05/19 23:06 23:06 23:39 RBC 5.73 H Hgb 17.6 H D Calcium 10.5 H Total Bilirubin 1.7 H Total Protein 8.9 H Albumin 5.6 H Urine Protein 100 H Urine Ketones 20 H Urine Urobilinogen 2.0 H Discharge - Discharge Clinical Impression: Vomiting Qualifiers: Vomiting type: unspecified Vomiting Intractability: non-intractable Nausea pres ence: with nausea Qualified Code(s): R11.2 - Nausea with vomiting, unspecified Condition: Good Disposition: HOME, SELF-CARE Instructions: Vomiting ([facility]) Additional Instructions: Return to the Emergency Department without delay if any worse. HOME CARE INSTRUCTIONS & INFORMATION: Thank you for choosing us for your medical needs. We hope you're satisfied with the care you received. After you leave, you must properly care for your problem and, at the same time, observe its progress. Any condition can change. Some illnesses can change rapidly over hours or days. If your condition worsens, return to the Emergency Department or see your physician promptly. ABOUT YOUR X-RAYS AND EKG'S: If you had an EKG or X-rays taken, they have been read by the Emergency Physician. The X-rays and EKG's will also be read by a Radiologist or Gm within 24 hours. If discrepancies are noted, you will be notified by telephone. Please be certain the ED has a correct telephone number & address where you can be reached. Also, realize that some fractures or abnormalities do not show up on initial X-rays. If your symptoms continue, see your physician. ABOUT YOUR LABORATORY TEST: If you had laboratory tests, the results have been reviewed by the Emergency Physician. Some test results (for example cultures) may not be available for several days. You will be contacted if any test result shows you need additional treatment. Please be certain the ED has a correct telephone number and address where you can be reached. ABOUT YOUR MEDICATIONS: You will receive instructions on how to take your medicine on the prescription label you receive. Additional information may be provided by the Pharmacy. If you have questions afterwards, call the ED for clarification or further instructions. Some prescribed medications may cause drowsiness. Do not perform tasks such as driving a car or operating machinery without consulting your Pharmacist. If you feel you need a refill of pain medication, your condition will need re-evaluation. Please do not call for a refill of any medication. ABOUT YOUR SIGNATURE: Signature of this document acknowledges to followin. Understanding that you received emergency treatment and that you may be re leased before al medical problems are known or treated. Please be certain the ED has a correct phone number & address where you can be reached. 2. Acknowledgement that you will arrange for follow-up care as recommended. 3. Authorization for the Emergency Physician to provide information to your follow-up Physician in order to maximize your care. AT ANY TIME, IF YOUR SYMPTOMS CHANGE SIGNIFICANTLY OR WORSEN OR YOU DEVELOP NEW SYMPTOMS, RETURN TO THE EMERGENCY DEPARTMENT IMMEDIATELY FOR RE-EVALUATION. OUR GOAL IS TO PROVIDE EXCELLENT MEDICAL CARE! WE HOPE THAT WE HAVE MET YOUR EXPECTATIONS DURING YOUR EMERGENCY DEPARTMENT VISIT AND THAT YOU FEEL YOU HAVE RECEIVED EXCELLENT CARE! Referrals: ENRIQUE LARKIN MD [HONORARY] - Follow up as needed I personally performed the services described in the documentation, reviewed and edited the documentation which was dictated to the scribe in my presence, and it accurately records my words and actions.
[2019-06-06 00:18] LABS: ABSOLUTE LYMPHOCYTES (AUTO) 1.7 10^3/uL (0.5-4.7); ABSOLUTE MONOCYTES (AUTO) 1.1 10^3/uL (0.1-1.4); ABSOLUTE NEUT (AUTO) 5.5 10^3/uL (1.7-8.2); BASOPHILS % (AUTO) 0.5 % (0-2); EOSINOPHILS % (AUTO) 0.4 % (0-6); HEMATOCRIT 50.3 % (37.9-51.0); LYMPHOCYTES % (AUTO) 20.8 % (13-45); MEAN CORPUSCULAR HEMOGLOBIN 30.6 pg (27.0-33.4); MEAN CORPUSCULAR HGB CONC 34.9 g/dL (32.0-36.0); MEAN CORPUSCULAR VOLUME 88 fl (80-97); MONOCYTES % (AUTO) 12.9 % (3-13); PLATELET COUNT 240 10^3/uL (150-450); RED BLOOD COUNT 5.73 10^6/uL (4.35-5.55); RED CELL DISTRIBUTION WIDTH 13.7 % (11.5-14.0); SEGMENTED NEUTROPHILS % (AUTO) 65.4 % (42-78); TOTAL CELLS COUNTED % (AUTO) 100 %; WHITE BLOOD COUNT 8.4 10^3/uL (4.0-10.5)
[2019-06-06 00:22] LABS: HEMOGLOBIN 17.6 g/dL (13.5-17.0)
[2019-06-06 00:45] LABS: URINE AMPHETAMINES SCREEN NEGATIVE; URINE BARBITURATES SCREEN NEGATIVE; URINE BENZODIAZEPINES SCREEN NEGATIVE; URINE COCAINE SCREEN NEGATIVE; URINE METHADONE SCREEN NEGATIVE; URINE PHENCYCLIDINE SCREEN NEGATIVE
[2019-06-06 00:49] LABS: URINE MARIJUANA (THC) SCREEN UNCONFIRMED POSITIVE
[2019-06-06] MEDS ORDERED: ONDANSETRON ODT 4 MG TAB (6 TAB/ER DISP) PO PRN (01:49)
[2019-06-06 01:58] VITALS: BP 131/72
== END 2019-06-06 02:00 | disposition home or self-care (01) ==
LOC: ER 22:38
DX: R11.2 Nausea with vomiting, unspecified (principal); R10.9 Unspecified abdominal pain; F17.210 Nicotine dependence, cigarettes, uncomplicated
CPT/HCPCS: 99284; 96361; 96374; 36415; 85025; 80053; 81001; 80307; J2405; J7030

== ENCOUNTER 2019-06-07 01:15 | Emergency (ER) | payer MEDICAID ==
[2019-06-07] MEDS ORDERED: NORMAL SALINE 1000 ML 1,000 ML IV ONE (01:28)
[2019-06-07] MEDS ORDERED: ONDANSETRON HCL INJ/PF 4 MG/2 ML SDV IV ONE (01:28)
[2019-06-07] MEDS ORDERED: PROCHLORPERAZINE EDISYLATE INJ 10 MG/2 ML VIAL IV ONE (02:18)
[2019-06-07 02:34] LABS: APPEARANCE,URINE SLIGHTLY-CLOUDY; BILIRUBIN,URINE NEGATIVE (NEGATIVE); COLOR,URINE DARK YELLOW; GLUCOSE, URINE NEGATIVE (NEGATIVE); KETONES,URINE 20 mg/dL (NEGATIVE); LEUKOCYTE ESTERASE,URINE NEGATIVE (NEGATIVE); NITRITE,URINE NEGATIVE (NEGATIVE); PROTEIN,URINE 100 mg/dL (NEGATIVE); URINE SPECIFIC GRAVITY 1.035
[2019-06-07 02:48] LABS: URINE AMPHETAMINES SCREEN NEGATIVE; URINE BARBITURATES SCREEN NEGATIVE; URINE BENZODIAZEPINES SCREEN NEGATIVE; URINE COCAINE SCREEN NEGATIVE; URINE METHADONE SCREEN NEGATIVE; URINE PHENCYCLIDINE SCREEN NEGATIVE
[2019-06-07 02:48] LABS: ABSOLUTE BASOPHILS # (AUTO) 0.1 10^3/uL (0.0-0.2); ABSOLUTE LYMPHOCYTES (AUTO) 1.6 10^3/uL (0.5-4.7); ABSOLUTE MONOCYTES (AUTO) 0.7 10^3/uL (0.1-1.4); ABSOLUTE NEUT (AUTO) 5.4 10^3/uL (1.7-8.2); BASOPHILS % (AUTO) 0.7 % (0-2); EOSINOPHILS % (AUTO) 0.4 % (0-6); HEMATOCRIT 48.6 % (37.9-51.0); HEMOGLOBIN 17.3 g/dL (13.5-17.0); LYMPHOCYTES % (AUTO) 20.9 % (13-45); MEAN CORPUSCULAR HEMOGLOBIN 31.3 pg (27.0-33.4); MEAN CORPUSCULAR HGB CONC 35.7 g/dL (32.0-36.0); MEAN CORPUSCULAR VOLUME 88 fl (80-97); MONOCYTES % (AUTO) 8.6 % (3-13); PLATELET COUNT 230 10^3/uL (150-450); RED BLOOD COUNT 5.54 10^6/uL (4.35-5.55); RED CELL DISTRIBUTION WIDTH 13.5 % (11.5-14.0); SEGMENTED NEUTROPHILS % (AUTO) 69.4 % (42-78); TOTAL CELLS COUNTED % (AUTO) 100 %; WHITE BLOOD COUNT 7.8 10^3/uL (4.0-10.5)
[2019-06-07 02:52] LABS: ALBUMIN 5.4 g/dL (3.5-5.0); ALKALINE PHOSPHATASE 102 U/L (38-126); ANION GAP 12 (5-19); ASPARTATE AMINO TRANSFERASE 48 U/L (17-59); BILIRUBIN,DIRECT 0.1 mg/dL (0.0-0.4); BLOOD UREA NITROGEN 23 mg/dL (7-20); CALCIUM 10.2 mg/dL (8.4-10.2); CARBON DIOXIDE 29 mmol/L (22-30); CHLORIDE 99 mmol/L (98-107); GLUCOSE 105 mg/dL (75-110); POTASSIUM 3.4 mmol/L (3.6-5.0); TOTAL PROTEIN 8.7 g/dL (6.3-8.2)
[2019-06-07 02:56] LABS: URINE MARIJUANA (THC) SCREEN UNCONFIRMED POSITIVE
--- NOTE | 2019-06-07 04:03 | ER Document Report ---
Entered by LORI GALLARDO SCRIBE 06/07/19 0207 Acting as scribe for:KATJA PINEDA IV, MD ED GI/ - General Chief Complaint: Nausea/Vomiting Stated Complaint: VOMITING Time Seen by Provider: 06/07/19 02:05 Primary Care Provider: ENRIQUE LARKIN MD [HONORARY] - Follow up as needed Mode of Arrival: Ambulatory Information source: Patient Notes: This 18 year old male patient presents to the ED today with complaints of nausea/vomiting with associated abdominal pain for the past x4 days. Patient was seen here x2 times in the last x3 days with similar symptoms and states that the Zofran he was prescribed provided no relief. He reports that his symptoms "started on some chips and it didn't go away." He notes that he had x8-9 episodes of emesis today. Patient has a history of heavy marijuana abuse, but he reports that he no longer uses it. He denies history of diabetes or gastroparesis. Denies fever or chills. TRAVEL OUTSIDE OF THE [place] IN LAST 30 DAYS: No - Related Data Allergies/Adverse Reactions: No Known Allergies Allergy (Verified 06/05/19 22:53) Past Medical History - Social History Smoking Status: Never Smoker Cigarette use (# per day): No Chew tobacco use (# tins/day): No Smoking Education Provided: No Frequency of alcohol use: None Drug Abuse: Marijuana Family History: Reviewed & Not Pertinent Patient has suicidal ideation: No Patient has homicidal ideation: No Musculoskeletal Medical History: Reports Hx Musculoskeletal Trauma Psychiatric Medical History: Reports: Hx Attention Deficit Hyperactivity Disorder Traumatic Medical History: Reports: Hx Fractures - open ankle fracture Past Surgical History: Reports: Hx Orthopedic Surgery - ORIF ankle - Immunizations Immunizations up to date: Yes Hx Diphtheria, Pertussis, Tetanus Vaccination: Yes Review of Systems - Review of Systems Constitutional: See HPI. denies: Chills, Fever EENT: No symptoms reported Cardiovascular: No symptoms reported Respiratory: No symptoms reported Gastrointestinal: See HPI, Abdominal pain, Nausea, Vomiting Genitourinary: No symptoms reported Male Genitourinary: No symptoms reported Musculoskeletal: No symptoms reported Skin: No symptoms reported Hematologic/Lymphatic: No symptoms reported Neurological/Psychological: No symptoms reported -: Yes All other systems reviewed and negative Physical Exam - Vital signs Vitals: Temp Pulse Resp BP Pulse Ox 98.8 F 82 16 128/76 H 100 06/07/19 01:19 06/07/19 01:19 06/07/19 01:19 06/07/19 01:19 06/07/19 01:19 - General General appearance: Alert In distress: None - HEENT Head: Normocephalic, Atraumatic Eyes: Normal Pupils: PERRL - Respiratory Respiratory status: No respiratory distress Chest status: Nontender Breath sounds: Normal Chest palpation: Normal - Cardiovascular Rhythm: Regular Heart sounds: Normal auscultation Murmur: No Friction rub: No Gallop: None auscultated - Abdominal Inspection: Normal Distension: No distension Bowel sounds: Normal Tenderness: Nontender - Abdomen soft Organomegaly: No organomegaly - Back Back: Normal, Nontender - Extremities General upper extremity: Normal inspection General lower extremity: Normal inspection - Neurological Neuro grossly intact: Yes - Psychological Associated symptoms: Normal affect, Normal mood - Skin Skin Temperature: Warm Skin Moisture: Dry Skin Color: Normal Course - Vital Signs Vital signs: Temp Pulse Resp BP Pulse Ox 98.8 F 82 16 128/76 H 100 06/07/19 01:19 06/07/19 01:19 06/07/19 01:19 06/07/19 01:19 06/07/19 01:19 - Laboratory Result Diagrams: 06/07/19 02:25 06/07/19 02:25 Laboratory results interpreted by me: 06/07/19 06/07/19 06/07/19 02:18 02:25 02:25 Hgb 17.3 H Potassium 3.4 L BUN 23 H Creatinine 1.33 H Total Bilirubin 2.0 H Total Protein 8.7 H Albumin 5.4 H Urine Protein 100 H Urine Ketones 20 H Urine Urobilinogen 2.0 H Discharge - Discharge Clinical Impression: Cannabis hyperemesis syndrome concurrent with and due to cannabis abuse Condition: Good Disposition: HOME, SELF-CARE Additional Instructions: Return to the Emergency Department without delay if any worse. HOME CARE INSTRUCTIONS & INFORMATION: Thank you for choosing us for your medical needs. We hope you're satisfied with the care you received. After you leave, you must properly care for your problem and, at the same time, observe its progress. Any condition can change. Some illnesses can change rapidly over hours or days. If your condition worsens, return to the Emergency Department or see your physician promptly. ABOUT YOUR X-RAYS AND EKG'S: If you had an EKG or X-rays taken, they have been read by the Emergency Physician. The X-rays and EKG's will also be read by a Radiologist or Line Crewman within 24 hours. If discrepancies are noted, you will be notified by telephone. Please be certain the ED has a correct telephone number & address where you can be reached. Also, realize that some fractures or abnormalities do not show up on initial X-rays. If your symptoms continue, see your physician. ABOUT YOUR LABORATORY TEST: If you had laboratory tests, the results have been reviewed by the Emergency Physician. Some test results (for example cultures) may not be available for several days. You will be contacted if any test result shows you need additional treatment. Please be certain the ED has a correct telephone number and address where you can be reached. ABOUT YOUR MEDICATIONS: You will receive instructions on how to take your medicine on the prescription label you receive. Additional information may be provided by the Pharmacy. If you have questions afterwards, call the ED for clarification or further instructions. Some prescribed medications may cause drowsiness. Do not perform tasks such as driving a car or operating machinery without consulting your Pharmacist. If you feel you need a refill of pain medication, your condition will need re-evaluation. Please do not call for a refill of any medication. ABOUT YOUR SIGNATURE: Signature of this document acknowledges to followin. Understanding that you received emergency treatment and that you may be released before al medical problems are known or treated. Please be certain the ED has a correct phone number & address where you can be reached. 2. Acknowledgement that you will arrange for follow-up care as recommended. 3. Authorization for the Emergency Physician to provide information to your follow-up Physician in order to maximize your care. AT ANY TIME, IF YOUR SYMPTOMS CHANGE SIGNIFICANTLY OR WORSEN OR YOU DEVELOP NEW SYMPTOMS, RETURN TO THE EMERGENCY DEPARTMENT IMMEDIATELY FOR RE-EVALUATION. OUR GOAL IS TO PROVIDE EXCELLENT MEDICAL CARE! WE HOPE THAT WE HAVE MET YOUR EXPECTATIONS DURING YOUR EMERGENCY DEPARTMENT VISIT AND THAT YOU FEEL YOU HAVE RECEIVED EXCELLENT CARE! Referrals: ENRIQUE LARKIN MD [HONORARY] - Follow up as needed I personally performed the services described in the documentation, reviewed and edited the documentation which was dictated to the scribe in my presence, and it accurately records my words and actions.
[2019-06-07 04:24] VITALS: BP 110/41
== END 2019-06-07 04:26 | disposition home or self-care (01) ==
LOC: ER 01:15
DX: F12.188 Cannabis abuse with other cannabis-induced disorder (principal); R11.2 Nausea with vomiting, unspecified; R10.9 Unspecified abdominal pain
CPT/HCPCS: 99283; 96361; 96374; 36415; 85025; 80053; 81001; 80307; J0780; J7030

== ENCOUNTER 2019-06-08 00:28 | Emergency (ER) | payer MEDICAID ==
[2019-06-08 00:35] VITALS: BP 147/83
[2019-06-08] MEDS ORDERED: PROMETHAZINE HCL INJ 50 MG/1 ML VIAL IM PRN (00:41)
[2019-06-08] MEDS ORDERED: ONDANSETRON ODT 4 MG TAB (6 TAB/ER DISP) PO PRN (00:42)
[2019-06-08] MEDS ORDERED: PROMETHAZINE HCL 25 MG SUPP (4 SUPP/ER DISP) PR ONE (00:43)
--- NOTE | 2019-06-08 00:44 | ER Document Report ---
HPI - HPI Time Seen by Provider: 06/08/19 00:36 Notes: Otherwise healthy 18-year-old male presented emergency department chief complaint of vomiting that began just a few hours prior to arrival. Patient denies any fever or diarrhea. Patient reports he has been seen in this emergency department multiple times over the last few days. He has not followed up with his primary care provider. Past Medical History - General Information source: Patient - Social History Smoking Status: Never Smoker Frequency of alcohol use: None Drug Abuse: Marijuana Family History: Reviewed & Not Pertinent Renal/ Medical History: Denies: Hx Peritoneal Dialysis Musculoskeletal Medical History: Reports Hx Musculoskeletal Trauma Psychiatric Medical History: Reports: Hx Attention Deficit Hyperactivity Disorder Traumatic Medical History: Reports: Hx Fractures - open ankle fracture Past Surgical History: Reports: Hx Orthopedic Surgery - ORIF ankle - Immunizations Immunizations up to date: Yes Hx Diphtheria, Pertussis, Tetanus Vaccination: Yes Vertical Provider Document - CONSTITUTIONAL Notes: PHYSICAL EXAMINATION: GENERAL: Well-nourished. HEAD: Atraumatic, normocephalic. EYES: Pupils equal round extraocular movements intact, conjunctiva are normal. ENT: Nares patent NECK: Normal range of motion LUNGS: No respiratory distress Gastrointestinal: Abdomen soft. Musculoskeletal: Normal range of motion NEUROLOGICAL: Normal speech, normal gait. PSYCH: Normal mood, normal affect. SKIN: Warm, Dry, normal turgor, no rashes or lesions noted. - INFECTION CONTROL TRAVEL OUTSIDE OF THE [place] IN LAST 30 DAYS: No Course - Re-evaluation Re-evalutation: Patient has been seen in this emergency department daily for the last 3 days for the same complaint. He has been diagnosed with cannabinoid hyperemesis syndrome. Patient denies any fever or abdominal pain, states that he has been vomiting for the last several hours. He denies any diarrhea. His vital signs are within normal limits, no hypotension, fever or tachycardia. He states he has no more nausea medicine at home. He will be given a dose of IM Phenergan here and will be discharged home with a dispense box of Phenergan and Zofran. - Vital Signs Vital signs: Temp Pulse Resp BP Pulse Ox 99.0 F 63 18 147/83 H 99 06/08/19 00:33 06/08/19 00:33 06/08/19 00:33 06/08/19 00:33 06/08/19 00:33 Discharge - Discharge Clinical Impression: Cannabis hyperemesis syndrome concurrent with and due to cannabis abuse Vomiting Qualifiers: Vomiting type: unspecified Vomiting Intractability: unspecified Nausea presence: with nausea Qualified Code(s): R11.2 - Nausea with vomiting, unspecified Condition: Stable Disposition: HOME, SELF-CARE Additional Instructions: Please take medications as prescribed. Follow-up with your primary care provider. Please continue to stop using marijuana as this is likely contributing to your vomiting. Prescriptions: Promethazine HCl [Phenergan 25 mg Tablet] 25 - 50 mg PO ASDIR PRN #12 tablet PRN Reason: Ondansetron [Zofran Odt 4 mg Tablet] 1 - 2 tab PO Q4H PRN #15 tab.rapdis PRN Reason: For Nausea/Vomiting
[2019-06-08] MEDS ORDERED: PROMETHAZINE HCL INJ 25 MG/1 ML VIAL ONE (00:48)
== END 2019-06-08 00:52 | disposition home or self-care (01) ==
LOC: ER 00:28
DX: F12.188 Cannabis abuse with other cannabis-induced disorder (principal); R11.2 Nausea with vomiting, unspecified
CPT/HCPCS: 99283; 96372; J3490; J2550

== ENCOUNTER 2019-06-09 16:58 | Observation (INO) | payer MEDICAID ==
[2019-06-09] MEDS ORDERED: ONDANSETRON HCL INJ/PF 4 MG/2 ML SDV IV ONE (17:39)
[2019-06-09] MEDS ORDERED: NORMAL SALINE 1000 ML 1,000 ML IV ONE ×2 (17:39→20:16)
--- NOTE | 2019-06-09 17:40 | ER Document Report ---
ED Medical Screen (RME) - General Chief Complaint: Vomiting Stated Complaint: VOMITING Time Seen by Provider: 06/09/19 17:34 Mode of Arrival: Ambulatory Information source: Patient, Parent Notes: Patient presents with nausea vomiting for the past week. Patient states he feels as though he is seeing blood in his emesis. Patient denies any fever. Patient complains of upper abdominal pain and chest discomfort. Patient has been seen multiple times for this complaint over the past few days. I have greeted and performed a rapid initial assessment of this patient. A comprehensive ED assessment and evaluation of the patient, analysis of test results and completion of the medical decision making process will be conducted by additional ED providers. TRAVEL OUTSIDE OF THE [place] IN LAST 30 DAYS: No - Related Data Allergies/Adverse Reactions: No Known Allergies Allergy (Verified 06/05/19 22:53) Past Medical History Renal/ Medical History: Denies: Hx Peritoneal Dialysis Musculoskeltal Medical History: Reports Hx Musculoskeletal Trauma Psychiatric Medical History: Reports: Hx Attention Deficit Hyperactivity Disorder Traumatic Medical History: Reports: Hx Fractures - open ankle fracture Past Surgical History: Reports: Hx Orthopedic Surgery - ORIF ankle - Immunizations Immunizations up to date: Yes Hx Diphtheria, Pertussis, Tetanus Vaccination: Yes Physical Exam - Vital signs Vitals: Temp Pulse BP Pulse Ox 98.8 F 82 140/82 H 100 06/09/19 17:05 06/09/19 17:05 06/09/19 17:05 06/09/19 17:05 - Abdominal Tenderness: Tender - Epigastric Course - Vital Signs Vital signs: Temp Pulse Resp BP Pulse Ox 98.8 F 82 140/82 H 100 06/09/19 17:05 06/09/19 17:05 06/09/19 17:05 06/09/19 17:05
[2019-06-09 18:59] LABS: ABSOLUTE BASOPHILS # (AUTO) 0.1 10^3/uL (0.0-0.2); ABSOLUTE LYMPHOCYTES (AUTO) 1.6 10^3/uL (0.5-4.7); ABSOLUTE MONOCYTES (AUTO) 0.8 10^3/uL (0.1-1.4); ABSOLUTE NEUT (AUTO) 5.3 10^3/uL (1.7-8.2); BASOPHILS % (AUTO) 0.7 % (0-2); EOSINOPHILS % (AUTO) 0.3 % (0-6); LYMPHOCYTES % (AUTO) 20.3 % (13-45); MEAN CORPUSCULAR HEMOGLOBIN 30.9 pg (27.0-33.4); MEAN CORPUSCULAR HGB CONC 34.6 g/dL (32.0-36.0); MEAN CORPUSCULAR VOLUME 89 fl (80-97); MONOCYTES % (AUTO) 10.3 % (3-13); PLATELET COUNT 217 10^3/uL (150-450); RED BLOOD COUNT 6.16 10^6/uL (4.35-5.55); RED CELL DISTRIBUTION WIDTH 13.5 % (11.5-14.0); SEGMENTED NEUTROPHILS % (AUTO) 68.4 % (42-78); TOTAL CELLS COUNTED % (AUTO) 100 %; WHITE BLOOD COUNT 7.7 10^3/uL (4.0-10.5)
[2019-06-09] MEDS ORDERED: DIAZEPAM INJ 10 MG/2 ML DISP.SYRIN IV ONE ×2 (19:43→20:16)
[2019-06-09] MEDS ORDERED: MAGNESIUM SULFATE PF/INJ 40 MEQ/10 ML SDV IV ONE (19:43)
[2019-06-09 19:52] LABS: ANION GAP 21 (5-19); BLOOD UREA NITROGEN 22 mg/dL (7-20); CALCIUM 10.5 mg/dL (8.4-10.2); CARBON DIOXIDE 22 mmol/L (22-30); CHLORIDE 95 mmol/L (98-107); GLUCOSE 88 mg/dL (75-110); POTASSIUM 4.3 mmol/L (3.6-5.0)
[2019-06-09 19:53] LABS: ALBUMIN 5.9 g/dL (3.5-5.0); ALKALINE PHOSPHATASE 123 U/L (38-126); ASPARTATE AMINO TRANSFERASE 105 U/L (17-59); BILIRUBIN,DIRECT 0.3 mg/dL (0.0-0.4); BILIRUBIN,TOTAL 3.3 mg/dL (0.2-1.3); TOTAL PROTEIN 9.9 g/dL (6.3-8.2)
[2019-06-09] MEDS ORDERED: CAPSAICIN HP 0.075% CREAM 60 GM TP ONE (20:16)
--- NOTE | 2019-06-09 20:46 | ER Document Report ---
ED General - General Chief Complaint: Nausea/Vomiting Stated Complaint: VOMITING Time Seen by Provider: 06/09/19 17:34 Mode of Arrival: Ambulatory TRAVEL OUTSIDE OF THE [place] IN LAST 30 DAYS: No - HPI Notes: 18-year-old male history of marijuana abuse presents with nausea vomiting x1 week. This is patient's sixth visit to ED since symptoms started. Patient has had one similar episode few months ago which resolved after 1 ED visit. Patient endorses some abdominal soreness epigastrically associated with vomiting episodes but otherwise mostly concerned about vomiting. Says that over the past few days he has noticed flecks of "red "in vomit. Patient stopped smoking marijuana few days ago. Patient was DCed with Phenergan suppositories, Zofran which did not relieve symptoms. Previously discharged with capsaicin prescription which she did not fill. Pt now complaining of mild midline retrosternal cp aggravated by vomiting. Patient denies any constipation/diarrhea, dizziness/syncope, prior surgeries, cough, shortness of breath, anticoagulation, family history, other drug use, alcohol abuse. - Related Data Allergies/Adverse Reactions: No Known Allergies Allergy (Verified 06/05/19 22:53) Past Medical History - General Information source: Patient, Parent - Social History Smoking Status: Never Smoker Chew tobacco use (# tins/day): No Frequency of alcohol use: None Drug Abuse: None, Marijuana Family History: Reviewed & Not Pertinent Patient has suicidal ideation: No Patient has homicidal ideation: No Renal/ Medical History: Denies: Hx Peritoneal Dialysis Musculoskeletal Medical History: Reports Hx Musculoskeletal Trauma Psychiatric Medical History: Reports: Hx Attention Deficit Hyperactivity Disorder Traumatic Medical History: Reports: Hx Fractures - open ankle fracture Past Surgical History: Reports: Hx Orthopedic Surgery - ORIF ankle - Immunizations Immunizations up to date: Yes Hx Diphtheria, Pertussis, Tetanus Vaccination: Yes Review of Systems - Review of Systems Notes: REVIEW OF SYSTEMS: CONSTITUTIONAL : Denies fever, chills, or sweats. EENT: Denies recent cold/sinus symptoms, denies throat pain CARDIOVASCULAR: +chest pain, -HATTIE RESPIRATORY: Denies cough, denies shortness of breath. GASTROINTESTINAL: +abdominal pain, nausea/vomiting. GENITOURINARY: Denies difficulty urinating, painful urination. MUSCULOSKELETAL: Denies neck pain, back pain. SKIN: Denies rash or skin lesions. HEMATOLOGIC : Denies easy bruising or bleeding. LYMPHATIC: Denies swollen, enlarged glands. NEUROLOGICAL: Denies headache, denies change in gait. PSYCHIATRIC: Denies anxiety or stress or depression. Physical Exam - Vital signs Vitals: Temp Pulse BP Pulse Ox 98.8 F 82 140/82 H 100 06/09/19 17:05 06/09/19 17:05 06/09/19 17:05 06/09/19 17:05 - Notes Notes: PHYSICAL EXAMINATION: GENERAL: Well-appearing, well-nourished, uncomfortable appearing, actively v omiting green emesis without any visible blood, in no acute distress HEAD: Atraumatic, normocephalic. EYES: Pupils equal round and appropriate constriction, sclera anicteric, conjunctiva are normal. ENT: nares patent, mildly dry mucous membranes. NECK: Normal range of motion, supple without lymphadenopathy LUNGS: Breath sounds clear to auscultation bilaterally and equal. No wheezes rales or rhonchi. HEART: Regular rate and rhythm without murmurs ABDOMEN: Soft, nontender, no guarding, no masses, no CVAT EXTREMITIES: Normal range of motion, no pitting or edema. No cyanosis. NEUROLOGICAL: Awake, alert, conversing appropriately, moves all extremities spontaneously. PSYCH: Normal mood, normal affect. SKIN: Warm, Dry, normal turgor, no rashes or lesions noted. Course - Re-evaluation Re-evalutation: 06/09/19 20:44 Patient presenting 6 times to ED for same symptom course, continues to match cannabinoid hyperemesis syndrome, but now showing signs of dehydration. Patient's heart rate still normal but has increased since earlier visits and patient's hemoglobin has been gradually more concentrated on each visit. No significant electrolyte abnormalities. Possible blood-tinged emesis not observed in the ED, likely Yasmine-Cevallos tears, patient very well-appearing despite discomfort while vomiting, clinical picture does not match Boerhaave syndrome, will obtain chest x-ray and observe. Patient agrees to observation, will replete fluids, trial capsaicin. Avoid QT prolonging agents as EKG shows Q TC of 511. Discussed case with Dr. Barnes who accepts patient to observation telemetry unit. - Vital Signs Vital signs: Temp Pulse Resp BP Pulse Ox 98.1 F 69 18 146/65 H 100 06/10/19 23:54 06/11/19 07:00 06/10/19 23:54 06/10/19 23:54 06/10/19 23:54 - Laboratory Result Diagrams: 06/10/19 04:16 06/10/19 04:16 Laboratory results interpreted by me: 06/09/19 06/09/19 18:10 18:10 RBC 6.16 H Hgb 19.0 H Hct 55.0 H Chloride 95 L Anion Gap 21 H BUN 22 H Calcium 10.5 H Total Bilirubin 3.3 H AST 105 H Total Protein 9.9 H Albumin 5.9 H - EKG Interpretation by Me Additional EKG results interpreted by me: 06/09/19 18:10 Rate 78, normal sinus rhythm, no significant ST elevations or depressions, QTC prolonged at 511 Discharge - Discharge Clinical Impression: Vomiting alone, Dehydration Condition: Good Disposition: ADMITTED OBSERVATION Admitting Provider: Molly (Hospitalist) Unit Admitted: Telemetry - telemetry observation
--- NOTE | 2019-06-09 20:49 | RADIOLOGY REPORT (SQ) ---
EXAM DESCRIPTION: XR CHEST 2 VIEWS COMPLETED DATE/TME: 06/09/2019 20:16 CLINICAL HISTORY: 18 years Male vomiting, chest pain COMPARISON: None. FINDINGS: The cardiomediastinal silhouette appears unremarkable. No consolidating infiltrates or pleural effusions. No pneumothorax. IMPRESSION: No acute abnormality is identified.
[2019-06-09] MEDS ORDERED: MAG HYDROX/AL HYDROX/SIMETH SUSP 30 ML UDCUP PO PRN (21:29)
[2019-06-09] MEDS ORDERED: MAGNESIUM HYDROXIDE SUSP 30 ML UDCUP PO PRN (21:29)
--- NOTE | 2019-06-09 21:29 | PDOC H&P ---
History of Present Illness Admission Date/PCP: 06/09/2019 20:42 No local PCP Patient complains of: Vomiting History of Present Illness: LOI TEE is a 18 year old male who presented to the emergency room with a one-week history of vomiting. He admits intractable vomiting for the last week resulting in numerous emergency room visits. His vomiting is been accompanied by nausea since onset and is associated with a few flecks of red in his emesis occurring over the last 2 days. He further admits to mild epigastric and retrosternal soreness/pain associated with the vomiting episodes. He denies other associated or accompanying signs and symptoms. He admits prior similar episodes of cyclic vomiting related to marijuana use. He stopped smoking marijuana several days ago on medical recommendation, but did not fill his capsaicin cream prescription which was provided. He has not identified any additional aggravating or ameliorating factors for his vomiting. In the emergency room he was found to have intractable vomiting relieved by topical capsaicin cream and IV Zofran. His cardiac evaluation was negative though his EKG did show a mildly prolonged QTc interval. He is still unable to tolerate any oral intake and as such was admitted to observation status for further e valuation and treatment. Past Medical History Cardiac Medical History: Denies: Coronary Artery Disease, DVT, Hyperlipidema, Hypertension, Pulmonary Embolism Pulmonary Medical History: Denies: Asthma, Chronic Obstructive Pulmonary Disease (COPD) EENT Medical History: Denies: Cataracts, Ears - Hearing deficits Neurological Medical History: Denies: Multiple Sclerosis, Seizures Endocrine Medical History: Denies: Diabetes Mellitus Type 1, Hyperthyroidism, Hypothyroidism, Obesity Renal/ Medical History: Denies: Chronic Kidney Disease, Nephrolithiasis Malignancy Medical History: Reports: None GI Medical History: Denies: Cirrhosis, Crohn's Disease, Gastroesophageal Reflux Disease, Hepatitis, Peptic Ulcer Disease, Ulcerative Colitis Musculoskeltal Medical History: Denies: Arthritis, Gout Skin Medical History: Denies: Eczema, Psoriasis Psychiatric Medical History: Reports: Attention Deficit Hyperactivity Disorder, Substance Abuse Denies: Alcohol Dependency, Tobacco Dependency Traumatic Medical History: Reports: None Hematology: Denies: Anemia, Bleeding Tendencies Infectious Medical History: Reports: None Past Surgical History Past Surgical History: Reports: Orthopedic Surgery - ORIF ankle, left knee ACL surgery Social History Information Source: Patient Lives with: Family Smoking Status: Never Smoker Electronic Cigarette use?: No Frequency of Alcohol Use: None Hx Recreational Drug Use: Yes Drugs: Marijuana Hx Prescription Drug Abuse: No - Advance Directive Resuscitation Status: Full Code Surrogate healthcare decision maker:: Kelinevin Olmedo Family History Family History: denies: CAD, DM, Hypertension, Malignancy Parental Family History Reviewed: Yes Children Family History Reviewed: No Sibling(s) Family History Reviewed.: Yes Medication/Allergy Home Medications: Ondansetron HCl [Zofran 8 mg Tablet] 8 mg PO Q8HP PRN 06/07/19 Ondansetron [Zofran Odt 4 mg Tablet] 1 - 2 tab PO Q4H PRN #15 tab.rapdis 06/08/19 Promethazine HCl [Phenergan 25 mg Tablet] 25 - 50 mg PO ASDIR PRN #12 tablet 06/08/19 Allergies/Adverse Reactions: No Known Allergies Allergy (Verified 06/05/19 22:53) Review of Systems Constitutional: ABSENT: chills, fever(s) Eyes: ABSENT: visual disturbances, other - Eye pain Ears: ABSENT: hearing changes, other - Ear pain Nose, Mouth, and Throat: ABSENT: headache(s), sore throat Cardiovascular: PRESENT: as per HPI, chest pain. ABSENT: palpitations Respiratory: ABSENT: cough, dyspnea Gastrointestinal: PRESENT: as per HPI, abdominal pain, nausea, vomiting. ABSENT: constipation, diarrhea Genitourinary: ABSENT: dysuria, hematuria Musculoskeletal: ABSENT: back pain, joint swelling Integumentary: ABSENT: pruritus, rash Neurological: ABSENT: confusion, convulsions, focal weakness, memory loss, syncope Psychiatric: ABSENT: anxiety, depression Endocrine: ABSENT: cold intolerance, heat intolerance, polydipsia, polyphagia, polyuria Hematologic/Lymphatic: ABSENT: easy bleeding, easy bruising Allergic/Immunologic: ABSENT: seasonal rhinorrhea Physical Exam Vital Signs: Temp Pulse Resp BP Pulse Ox 98.6 F 80 18 132/72 H 98 06/09/19 19:17 06/09/19 19:17 06/09/19 19:17 06/09/19 19:17 06/09/19 19:17 Intake & Output 06/07/19 06/08/19 06/09/19 23:59 23:59 23:59 Intake Total 1000 Balance 1000 Weight 56 kg General appearance: PRESENT: no acute distress, cooperative, well-developed Head exam: PRESENT: atraumatic, normocephalic Eye exam: ABSENT: conjunctival injection, scleral icterus Ear exam: PRESENT: normal external ear exam. ABSENT: bleeding, drainage Mouth exam: PRESENT: dry mucosa, neck supple Neck exam: ABSENT: thyromegaly, tracheal deviation Respiratory exam: PRESENT: clear to auscultation boaz, symmetrical, unlabored Cardiovascular exam: PRESENT: RRR. ABSENT: clicks, gallop, rubs Pulses: PRESENT: normal radial pulses, normal dorsalis pedis pul Vascular exam: PRESENT: normal capillary refill. ABSENT: pallor GI/Abdominal exam: PRESENT: normal bowel sounds, soft, tenderness - Mild epigastric tenderness on palpation Rectal exam: PRESENT: deferred Extremities exam: ABSENT: joint swelling, pedal edema Musculoskeletal exam: ABSENT: deformity, dislocation Neurological exam: PRESENT: alert, oriented to person, oriented to place, oriented to time, oriented to situation, CN II-XII grossly intact. ABSENT: motor sensory deficit Psychiatric exam: PRESENT: appropriate affect, normal mood Skin exam: PRESENT: dry, intact, warm. ABSENT: jaundice, rash, urticaria Results Laboratory Results: 06/09/19 18:10 06/09/19 18:10 06/09/19 06/09/19 18:10 18:10 WBC 7.7 RBC 6.16 H Hgb 19.0 H Hct 55.0 H MCV 89 MCH 30.9 MCHC 34.6 RDW 13.5 Plt Count 217 Seg Neutrophils % 68.4 Sodium 137.7 Potassium 4.3 Chloride 95 L Carbon Dioxide 22 Anion Gap 21 H BUN 22 H Creatinine 1.22 Est GFR ( Amer) > 60 Glucose 88 Calcium 10.5 H Total Bilirubin 3.3 H AST 105 H Alkaline Phosphatase 123 Total Protein 9.9 H Albumin 5.9 H Lipase 96.7 Impressions: Chest X-Ray 06/09/19 20:16 IMPRESSION: No acute abnormality is identified. Assessment and Plan - Diagnosis (1) Intractable cyclical vomiting Is this a current diagnosis for this admission?: Yes (2) Cannabis hyperemesis syndrome concurrent with and due to cannabis abuse Is this a current diagnosis for this admission?: Yes (3) Prolonged QT interval Is this a current diagnosis for this admission?: Yes (4) Retrosternal chest pain Is this a current diagnosis for this admission?: Yes (5) Epigastric abdominal pain Is this a current diagnosis for this admission?: Yes (6) Dehydration Is this a current diagnosis for this admission?: Yes (7) ADHD, adult residual type Is this a current diagnosis for this admission?: Yes - Plan Summary Summary: Patient is admitted observation status in a telemetry bed where he will receive routine supportive and symptomatic cares. He will receive IV fluids for rehydration. He will receive Thorazine 25 mg IV every 6 hours as needed for nausea or vomiting. He will receive topical capsaicin cream as ongoing treatment of his cannabis hyperemesis syndrome. A CBC, metabolic profile and magnesium level will be obtained in the morning. Patient will receive Valium 10 mg IV every 6 hours as needed for anxiety or restlessness. He will resume a regular diet when he is able to tolerate oral intake. - Time Time Spent with patient: Less than 15 minutes Medications reviewed and adjusted accordingly: Yes Anticipated discharge: Home Within: within 48 hours - Inpatient Certification Based on my medical assessment, after consideration of the patient's comorbidities, presenting symptoms, or acuity I expect that the services needed warrant INPATIENT care.: No I certify that my determination is in accordance with my understanding of Medicare's requirements for reasonable and necessary INPATIENT services [42 CFR 412.3e].: No Medical Necessity: Failure to Improve With Outpatient Therapy, Need For IV Fluids, Need For Continuous Telemetry Monitoring
[2019-06-09] MEDS ORDERED: CHLORPROMAZINE HCL INJ 25 MG/1 ML AMPULE IV PRN (21:32)
[2019-06-09] MEDS ORDERED: DIAZEPAM INJ 10 MG/2 ML DISP.SYRIN IV PRN (21:33)
[2019-06-09] MEDS ORDERED: ACETAMINOPHEN 325 MG TABLET PO PRN (21:33)
[2019-06-09] MEDS: FAMOTIDINE INJ/PF 20 MG/2 ML SDV IV SCH (23:02)
[2019-06-09] MEDS: RINGERS SOLUTION,LACTATED 1,000 ML IV PRN (23:20)
[2019-06-09] MEDS ORDERED: CHLORPROMAZINE HCL INJ 25 MG/1 ML AMPULE ONE (23:23)
[2019-06-09] MEDS: HEPARIN SOD (PORCINE) 5,000 UNIT/ML 1 ML VIAL SUBCUT SCH (23:36)
[2019-06-10] MEDS: RINGERS SOLUTION,LACTATED 1,000 ML IV PRN ×3 (03:38→12:25)
[2019-06-10 05:12] LABS: HEMATOCRIT 39.2 % (37.9-51.0); HEMOGLOBIN 13.8 g/dL (13.5-17.0); MEAN CORPUSCULAR HEMOGLOBIN 30.9 pg (27.0-33.4); MEAN CORPUSCULAR HGB CONC 35.2 g/dL (32.0-36.0); MEAN CORPUSCULAR VOLUME 88 fl (80-97); PLATELET COUNT 177 10^3/uL (150-450); RED BLOOD COUNT 4.47 10^6/uL (4.35-5.55); RED CELL DISTRIBUTION WIDTH 13.1 % (11.5-14.0)
[2019-06-10 05:18] LABS: ANION GAP 7 (5-19); BLOOD UREA NITROGEN 17 mg/dL (7-20); CALCIUM 8.7 mg/dL (8.4-10.2); CARBON DIOXIDE 27 mmol/L (22-30); CHLORIDE 103 mmol/L (98-107); GLUCOSE 80 mg/dL (75-110); POTASSIUM 3.6 mmol/L (3.6-5.0)
[2019-06-10] MEDS: HEPARIN SOD (PORCINE) 5,000 UNIT/ML 1 ML VIAL SUBCUT SCH ×3 (05:28→21:35)
--- NOTE | 2019-06-10 07:39 | EKG REPORT ---
SEVERITY:- BORDERLINE ECG - SINUS RHYTHM NONSPECIFIC ST-T CHANGES : Confirmed by: Enrique Velasquez MD 10-Jun-2019 07:38:27
--- NOTE | 2019-06-10 07:39 | EKG REPORT ---
SEVERITY:- ABNORMAL ECG - SINUS RHYTHM BORDERLINE RIGHT AXIS DEVIATION PROLONGED QT INTERVAL NONSPECIFIC ST-T CHANGES : Confirmed by: Enrique Velasquez MD 10-Jun-2019 07:39:12
[2019-06-10] MEDS: CAPSAICIN 0.025% CREAM 60 GM TP SCH (10:40)
[2019-06-10] MEDS: FAMOTIDINE INJ/PF 20 MG/2 ML SDV IV SCH ×2 (10:40→21:35)
[2019-06-10] MEDS: NORMAL SALINE 1000 ML 1,000 ML IV PRN ×2 (13:06→21:35)
[2019-06-10] MEDS: PROMETHAZINE HCL INJ 25 MG/1 ML VIAL IV PRN ×2 (13:06→20:08)
--- NOTE | 2019-06-10 13:22 | PDOC PROGRESS REPORT ---
Subjective Progress Note for:: 06/10/19 Reason For Visit: CYCLIC VOMITING,MARIJUANA ABUSE,PROLONGED QTC 06/10/2019 Patient admitted for intractable vomiting, multiple ED visits, marijuana abuse Physical Exam Vital Signs: Temp Pulse Resp BP Pulse Ox 98.6 F 76 16 178/68 H 100 06/10/19 11:00 06/10/19 11:00 06/10/19 11:00 06/10/19 11:00 06/10/19 11:00 Intake & Output 06/09/19 06/10/19 06/11/19 06:59 06:59 06:59 Intake Total 3460 2236 Output Total 300 Balance 3460 1936 Weight 56.2 kg General appearance: PRESENT: no acute distress Respiratory exam: PRESENT: clear to auscultation boaz. ABSENT: rales, rhonchi, wheezes Cardiovascular exam: PRESENT: RRR. ABSENT: diastolic murmur, rubs, systolic murmur Neurological exam: PRESENT: altered, other - Patient lethargic secondary to probable Thorazine Psychiatric exam: PRESENT: appropriate affect, normal mood. ABSENT: homicidal ideation, suicidal ideation Results Laboratory Results: 06/10/19 04:16 06/10/19 04:16 06/09/19 06/09/19 06/10/19 18:10 18:10 04:16 WBC 7.7 6.0 RBC 6.16 H 4.47 Hgb 19.0 H 13.8 D Hct 55.0 H 39.2 MCV 89 88 MCH 30.9 30.9 MCHC 34.6 35.2 RDW 13.5 13.1 Plt Count 217 177 Seg Neutrophils % 68.4 Sodium 137.7 Potassium 4.3 Chloride 95 L Carbon Dioxide 22 Anion Gap 21 H BUN 22 H Creatinine 1.22 Est GFR ( Amer) > 60 Glucose 88 Calcium 10.5 H Magnesium Total Bilirubin 3.3 H AST 105 H Alkaline Phosphatase 123 Total Protein 9.9 H Albumin 5.9 H Lipase 96.7 TSH 06/10/19 06/10/19 04:16 04:16 WBC RBC Hgb Hct MCV MCH MCHC RDW Plt Count Seg Neutrophils % Sodium 137.4 Potassium 3.6 Chloride 103 Carbon Dioxide 27 Anion Gap 7 BUN 17 Creatinine 0.94 Est GFR ( Amer) > 60 Glucose 80 Calcium 8.7 Magnesium 2.1 Total Bilirubin AST Alkaline Phosphatase Total Protein Albumin Lipase TSH 1.11 Impressions: Chest X-Ray 06/09/19 20:16 IMPRESSION: No acute abnormality is identified. Assessment and Plan - Diagnosis (1) Intractable cyclical vomiting Is this a current diagnosis for this admission?: Yes (2) Prolonged QT interval Is this a current diagnosis for this admission?: Yes (3) Cannabis hyperemesis syndrome concurrent with and due to cannabis abuse Is this a current diagnosis for this admission?: Yes - Plan Summary Summary: Patient is admitted observation status in a telemetry bed where he will receive routine supportive and symptomatic cares. He will receive IV fluids for rehydration. He will receive Thorazine 25 mg IV every 6 hours as needed for nausea or vomiting. He will receive topical capsaicin cream as ongoing treat ment of his cannabis hyperemesis syndrome. A CBC, metabolic profile and magnesium level will be obtained in the morning. Patient will receive Valium 10 mg IV every 6 hours as needed for anxiety or restlessness. He will resume a regular diet when he is able to tolerate oral intake. 06/10/2019 Patient is continuing to vomit even on the Thorazine. Nurses actually witnessed 3 or 4 episodes of vomiting. Patient is somewhat lethargic secondary to the Thorazine. Patient has had almost 4 L of fluid now by IV. Patient's admission hemoglobin was 19 repeat from this morning was 13.8. Patient has had elevated numbers in the past Patient's chemistry panel is actually stable Will DC Thorazine and try IV Phenergan, decrease IV fluids. Continue topical capsaicin May add a scopolamine disc at the Phenergan is not effective DC IV Valium Reevaluate patient this afternoon. - Time Time Spent with patient: 25-34 minutes
[2019-06-11 02:43] LABS: APPEARANCE,URINE CLEAR; BILIRUBIN,URINE NEGATIVE (NEGATIVE); COLOR,URINE YELLOW; GLUCOSE, URINE NEGATIVE (NEGATIVE); KETONES,URINE 80 mg/dL (NEGATIVE); LEUKOCYTE ESTERASE,URINE NEGATIVE (NEGATIVE); NITRITE,URINE NEGATIVE (NEGATIVE); PROTEIN,URINE NEGATIVE (NEGATIVE)
[2019-06-11] MEDS: HEPARIN SOD (PORCINE) 5,000 UNIT/ML 1 ML VIAL SUBCUT SCH ×2 (05:33→13:15)
[2019-06-11] MEDS: NORMAL SALINE 1000 ML 1,000 ML IV PRN (05:59)
[2019-06-11] MEDS: PROMETHAZINE HCL INJ 25 MG/1 ML VIAL IV PRN (05:59)
[2019-06-11] MEDS: FAMOTIDINE INJ/PF 20 MG/2 ML SDV IV SCH (09:19)
[2019-06-11] MEDS: CAPSAICIN 0.025% CREAM 60 GM TP SCH (09:20)
[2019-06-11 10:10] VITALS: BP 161/101
[2019-06-11] MEDS ORDERED: SCOPOLAMINE HYDROBROMIDE 1.5 MG PATCH.TD72 TD SCH (11:30)
--- NOTE | 2019-06-11 12:41 | PDOC PROGRESS REPORT ---
Subjective Progress Note for:: 06/11/19 Reason For Visit: CYCLIC VOMITING,MARIJUANA ABUSE,PROLONGED QTC 06/11/2019 Intractable vomiting secondary to marijuana abuse Physical Exam Vital Signs: Temp Pulse Resp BP Pulse Ox 98.5 F 70 17 161/101 H 100 06/11/19 07:59 06/11/19 07:59 06/11/19 07:59 06/11/19 07:59 06/11/19 07:59 Intake & Output 06/10/19 06/11/19 06/12/19 06:59 06:59 06:59 Intake Total 3460 5476 Output Total 304 Balance 3460 5172 Weight 56.2 kg 56.2 kg General appearance: PRESENT: no acute distress Respiratory exam: PRESENT: clear to auscultation boaz. ABSENT: rales, rhonchi, wheezes Cardiovascular exam: PRESENT: RRR. ABSENT: diastolic murmur, rubs, systolic murmur GI/Abdominal exam: PRESENT: normal bowel sounds, soft. ABSENT: distended, guarding, mass, organolmegaly, rebound, tenderness Neurological exam: PRESENT: alert, awake, oriented to person, oriented to place, oriented to time, oriented to situation, CN II-XII grossly intact. ABSENT: motor sensory deficit Psychiatric exam: PRESENT: appropriate affect, normal mood. ABSENT: homicidal ideation, suicidal ideation Results Laboratory Results: 06/10/19 04:16 06/10/19 04:16 06/11/19 02:19 Urine Color YELLOW Urine Appearance CLEAR Urine pH 7.0 Ur Specific [place] 1.010 Urine Protein NEGATIVE Urine Glucose (UA) NEGATIVE Urine Ketones 80 H Urine Blood NEGATIVE Urine Nitrite NEGATIVE Ur Leukocyte Esterase NEGATIVE Urine WBC (Auto) 1 Urine RBC (Auto) 0 Impressions: Chest X-Ray 06/09/19 20:16 IMPRESSION: No acute abnormality is identified. Assessment and Plan - Diagnosis (1) Intractable cyclical vomiting Is this a current diagnosis for this admission?: Yes (2) Prolonged QT interval Is this a current diagnosis for this admission?: Yes (3) Cannabis hyperemesis syndrome concurrent with and due to cannabis abuse Is this a current diagnosis for this admission?: Yes - Plan Summary Summary: Patient is admitted observation status in a telemetry bed where he will receive routine supportive and symptomatic cares. He will receive IV fluids for rehydration. He will receive Thorazine 25 mg IV every 6 hours as needed for nausea or vomiting. He will receive topical capsaicin cream as ongoing treatment of his cannabis hyperemesis syndrome. A CBC, metabolic profile and magnesium level will be obtained in the morning. Patient will receive Valium 10 mg IV every 6 hours as needed for anxiety or restlessness. He will resume a r egular diet when he is able to tolerate oral intake. 06/10/2019 Patient is continuing to vomit even on the Thorazine. Nurses actually witnessed 3 or 4 episodes of vomiting. Patient is somewhat lethargic secondary to the Thorazine. Patient has had almost 4 L of fluid now by IV. Patient's admission hemoglobin was 19 repeat from this morning was 13.8. Patient has had elevated numbers in the past Patient's chemistry panel is actually stable Will DC Thorazine and try IV Phenergan, decrease IV fluids. Continue topical capsaicin May add a scopolamine disc at the Phenergan is not effective DC IV Valium Reevaluate patient this afternoon. 06/11/2019 Yesterday's intake was 5476 output was 304 and that was this morning with vomiting x3 Somehow patient was on a regular diet and this was changed today to a full liquid Patient is using Phenergan but it does make him a little drowsy I DC'd this and switch him to a scopolamine disc Weight on admission was 56.2 kg today it was 56.2 kg Temperature 98.1 pulse 75 blood pressure 146/65 Renal functions are better BUN is down to 17 creatinine is down to 0.94 Patient to me appears to be stable but he is still vomiting. Would like to send him home when he is tolerating full liquids and no vomiting if at all possible Plan to discharge in the morning I have spoken to the patient's nurse about him - Time Time Spent with patient: 25-34 minutes
--- NOTE | 2019-06-11 16:28 | Left Against Medical Advice ---
Against Medical Advice Admission Date/Time: 06/09/19 21:03 Primary Care Provider: Date of Patient Emigration: 06/11/19 - Diagnosis: (1) Intractable cyclical vomiting Is this a current diagnosis for this admission?: Yes (2) Prolonged QT interval Is this a current diagnosis for this admission?: Yes (3) Cannabis hyperemesis syndrome concurrent with and due to cannabis abuse Is this a current diagnosis for this admission?: Yes - Summary: Summary: Please see Admission and Progress Notes as well. LOI TEE is a 18 M, who LEFT AGAINST MEDICAL ADVICE. The Patient was admitted on 06/09/19 21:03. With intractable vomiting, patient had been to the ER 4 times prior to this admission in the last week for the same problem. Patient had been abusing marijuana prior to the intractable vomiting. In the ED his EKG showed a prolonged QT cycle of 511. She was admitted to the hospital for IV fluids Thorazine Zofran and or Phenergan. The see my note from 415 and actually 416 prior to his leaving AMA. Patient was demanding that he get a regular diet even though he vomited 3 times this morning. I had ordered a full liquid diet. Patient evidently had no further vomiting after a scopolamine patch was placed early this morning. I had plan to discharge patient tomorrow morning. Patient left AMA because he could not get a regular diet to eat. Scopolamine patch was removed prior to him leaving AMA, no prescriptions were written. All of patient's labs had improved this morning from the time of admission and his vital signs were stable Final diagnosis is cannabis hyperemesis, mildly prolonged QT wave.
== END 2019-06-11 14:51 | disposition left against medical advice (07) ==
LOC: ER 16:58 → EH 21:03 → 4S 22:20
PROVIDERS: ADMIT Emergency Medicine; ATTEND Physician Assistant
DX: R11.15 Cyclical vomiting syndrome unrelated to migraine (principal); F12.188 Cannabis abuse with other cannabis-induced disorder; R94.31 Abnormal electrocardiogram [ECG] [EKG]; R10.13 Epigastric pain; E86.0 Dehydration; R07.2 Precordial pain; F90.8 Attention-deficit hyperactivity disorder, other type; R53.83 Other fatigue; T43.3X5A Adverse effect of phenothiazine antipsychotics and neuroleptics, initial encounter
CPT/HCPCS: 93005 ×2; 99285; 96361; 96374; 36415 ×2; 83690; 83735; 84443; 85025; 85027; 82271; 80048; 80053; 81001; 71046; 93010 ×2; J1644 ×2; J3230; J3360; J3490 ×2; J2550 ×2; J2405; J7030 ×3; J7120 ×2; S0028 ×3; G0378

== ENCOUNTER 2019-08-17 11:37 | Emergency (ER) | payer MEDICAID ==
[2019-08-17] MEDS ORDERED: IBUPROFEN 600 MG TABLET PO ONE (12:00)
--- NOTE | 2019-08-17 12:01 | ER Document Report ---
HPI - HPI Patient complains to provider of: Left Knee pain Time Seen by Provider: 08/17/19 11:55 Pain Level: 5 Context: 19-year-old male past medical history significant for left ACL tear presents to the emergency room complaining of worsening left knee pain. Patient states he was playing football yesterday when he twisted his knee. Pain has progressively gotten worse today. He has not taken anything for the pain. States is able to walk but is painful. Associated Symptoms: None Exacerbated by: Movement, Walking Relieved by: Remaining still Similar symptoms previously: No Recently seen / treated by doctor: No - ROS Systems Reviewed and Negative: Yes All other systems reviewed and negative - CONSTITUTIONAL Constitutional: DENIES: Fever, Chills - EENT EENT: DENIES: Sore Throat, Ear Pain, Eye problems - NEURO Neurology: DENIES: Headache, Weakness, Vision blurred, Dizzinesss / Vertigo - CARDIOVASCULAR Cardiovascular: DENIES: Chest pain - RESPIRATORY Respiratory: DENIES: Trouble Breathing, Coughing - GASTROINTESTINAL Gastrointestinal: DENIES: Abdominal Pain - URINARY Urinary: DENIES: Dysuria, Urgency, Frequency - REPRODUCTIVE Reproductive: DENIES: : - MUSCULOSKELETAL Musculoskeletal: REPORTS: Extremity pain - left knee pain Past Medical History - General Information source: Patient - Social History Smoking Status: Current Every Day Smoker Frequency of alcohol use: None Drug Abuse: None Family History: Reviewed & Not Pertinent Patient has homicidal ideation: No - Past Medical History Cardiac Medical History: Denies: Hx Coronary Artery Disease, Hx DVT, Hx Hypercholesterolemia, Hx Hypertension, Hx Pulmonary Embolism Pulmonary Medical History: Denies: Hx Asthma, Hx COPD Neurological Medical History: Denies: Hx Seizures Endocrine Medical History: Denies: Hx Diabetes Mellitus Type 1, Hx Hyperthyroidism, Hx Hypothyroidism Renal/ Medical History: Denies: Hx Peritoneal Dialysis GI Medical History: Denies: Hx Cirrhosis, Hx Crohn's Disease, Hx Gastroesophageal Reflux Disease, Hx Hepatitis, Hx Ulcerative Colitis Musculoskeletal Medical History: Denies Hx Arthritis, Denies Hx Gout, Reports Hx Musculoskeletal Trauma Skin Medical History: Denies Hx Eczema, Denies Hx Psoriasis Psychiatric Medical History: Reports: Hx Attention Deficit Hyperactivity Disorder Traumatic Medical History: Reports: Hx Fractures - open ankle fracture Infectious Medical History: Denies: Hx Hepatitis Past Surgical History: Reports: Hx Orthopedic Surgery - ORIF ankle - Immunizations Immunizations up to date: Yes Hx Diphtheria, Pertussis, Tetanus Vaccination: Yes Vertical Provider Document - CONSTITUTIONAL Agree With Documented VS: Yes Exam Limitations: No Limitations General Appearance: Mild Distress - INFECTION CONTROL TRAVEL OUTSIDE OF THE [place] IN LAST 30 DAYS: No - HEENT HEENT: Atraumatic, Normocephalic - NECK Neck: Normal Inspection, Supple, Thyroid Normal - RESPIRATORY Respiratory: Breath Sounds Normal, No Respiratory Distress, Chest Non-Tender - CARDIOVASCULAR Cardiovascular: Regular Rate, Regular Rhythm, No Murmur - MUSCULOSKELETAL/EXTREMETIES Musculoskeletal/Extremeties: Tender - Painful range of motion with flexion, and extension of the left knee. It is nontender to palpation. Negative ballottement. Negative anterior posterior drawer. Negative Tor's, negative Fadumo's. - NEURO Level of Consciousness: Awake, Alert, Appropriate Motor/Sensory: No Motor Deficit, No Sensory Deficit Notes: Ambulatory with a steady gait. - DERM Integumentary: Warm, Dry, No Rash Course - Re-evaluation Re-evalutation: 08/17/19 13:11 Patient is resting comfortably with decreased pain. He is ambulatory with a steady gait. Reviewed x-ray results with patient. Rest, ice, elevate his left knee. Counseled take Tylenol and or Motrin as needed for pain. Outpatient foll ow-up with orthopedics if not improving in 2 to 3 days. On-call physician was provided. Patient was given strict return to the emergency room guidelines. Return for any new or worsening symptoms. All questions were answered. Patient verbalized understanding and agrees with plan of care. 08/17/19 21:51 - Vital Signs Vital signs: Temp Pulse Resp BP Pulse Ox 98.4 F 79 14 115/61 96 08/17/19 11:42 08/17/19 11:42 08/17/19 11:42 08/17/19 11:42 08/17/19 11:42 - Diagnostic Test Radiology reviewed: Reports reviewed Discharge - Discharge Clinical Impression: Effusion, left knee Condition: Stable Disposition: HOME, SELF-CARE Instructions: Knee Effusion ([facility]) Additional Instructions: Rest, ice, elevate left knee. Tylenol and or Motrin as needed for pain. Outpatient follow-up with orthopedics as discharged return for any new or worsening symptoms. Referrals: NOEMI ZARAGOZA DO [ACTIVE STAFF] - Follow up as needed
--- NOTE | 2019-08-17 12:59 | RADIOLOGY REPORT (SQ) ---
EXAM DESCRIPTION: KNEE LEFT 4 VIEW IMAGES COMPLETED DATE/TIME: 08/17/2019 12:47 pm REASON FOR STUDY: injury COMPARISON: AP, lateral, and oblique views of the left knee from 10/01/2017. NUMBER OF VIEWS: Four views. TECHNIQUE: AP, lateral, and both oblique radiographic images acquired of the left knee. LIMITATIONS: None. FINDINGS: MINERALIZATION: Normal. BONES: Postoperative findings consistent with prior ACL repair. There is no acute fracture or disloc ation. JOINT: There is a joint effusion. The quadriceps and patellar tendon silhouettes are intact. SOFT TISSUES: No prepatellar soft tissue swelling. OTHER: No other finding. IMPRESSION: Postoperative findings consistent with prior ACL repair. There is a joint effusion with out an associated acute osseous abnormality. If there is concern for internal derangement consider c orrelation with a MRI. TECHNICAL DOCUMENTATION: JOB ID: [id number] 2010 [employer]- All Rights Reserved Reading location - IP/workstation name: [email or web address]
[2019-08-17 13:28] VITALS: BP 112/68
== END 2019-08-17 13:28 | disposition home or self-care (01) ==
LOC: ER 11:37
DX: M25.462 Effusion, left knee (principal); M25.562 Pain in left knee; X50.1XXA Overexertion from prolonged static or awkward postures, initial encounter; Y93.61 Activity, american tackle football; F17.200 Nicotine dependence, unspecified, uncomplicated
CPT/HCPCS: 99283; 73564; J3490

== ENCOUNTER 2019-09-21 18:54 | Emergency (ER) | payer MEDICAID ==
[2019-09-21] MEDS ORDERED: IBUPROFEN 600 MG TABLET PO ONE (19:25)
[2019-09-21 22:47] VITALS: BP 106/76
== END 2019-09-22 01:27 | disposition left against medical advice (07) ==
LOC: ER 18:54
DX: Z53.21 Procedure and treatment not carried out due to patient leaving prior to being seen by health care provider (principal)

== ENCOUNTER 2019-09-22 10:29 | Emergency (ER) | payer MEDICAID ==
[2019-09-22 10:36] VITALS: BP 112/61
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
== END 2019-09-22 12:46 | disposition home or self-care (01) ==
LOC: ER 10:29
DX: M79.641 Pain in right hand (principal); S09.90XA Unspecified injury of head, initial encounter; Y04.0XXA Assault by unarmed brawl or fight, initial encounter; R11.2 Nausea with vomiting, unspecified
CPT/HCPCS: 99283

== ENCOUNTER 2019-12-21 11:38 | Emergency (ER) | payer MEDICAID ==
[2019-12-21 12:17] LABS: ABSOLUTE BASOPHILS # (AUTO) 0.1 10^3/uL (0.0-0.2); ABSOLUTE LYMPHOCYTES (AUTO) 1.3 10^3/uL (0.5-4.7); MEAN CORPUSCULAR HEMOGLOBIN 30.4 pg (27.0-33.4); TOTAL CELLS COUNTED % (AUTO) 100 %
[2019-12-21 12:22] LABS: ABSOLUTE EOSINOPHILS # (AUTO) 0.4 10^3/uL (0.0-0.6); ABSOLUTE MONOCYTES (AUTO) 0.4 10^3/uL (0.1-1.4); ABSOLUTE NEUT (AUTO) 1.5 10^3/uL (1.7-8.2); BASOPHILS % (AUTO) 1.4 % (0-2); EOSINOPHILS % (AUTO) 10.3 % (0-6); HEMATOCRIT 47.1 % (37.9-51.0); HEMOGLOBIN 16.2 g/dL (13.5-17.0); LYMPHOCYTES % (AUTO) 37.2 % (13-45); MEAN CORPUSCULAR HGB CONC 34.3 g/dL (32.0-36.0); MEAN CORPUSCULAR VOLUME 89 fl (80-97); PLATELET COUNT 220 10^3/uL (150-450); RED BLOOD COUNT 5.33 10^6/uL (4.35-5.55); RED CELL DISTRIBUTION WIDTH 13.5 % (11.5-14.0); SEGMENTED NEUTROPHILS % (AUTO) 41.1 % (42-78); WHITE BLOOD COUNT 3.6 10^3/uL (4.0-10.5)
[2019-12-21 12:34] LABS: ALBUMIN 5.2 g/dL (3.5-5.0); ALKALINE PHOSPHATASE 101 U/L (38-126); ANION GAP 15 (5-19); ASPARTATE AMINO TRANSFERASE 35 U/L (17-59); BILIRUBIN,DIRECT 0.3 mg/dL (0.0-0.4); BILIRUBIN,TOTAL 0.9 mg/dL (0.2-1.3); BLOOD UREA NITROGEN 9 mg/dL (7-20); CALCIUM 10.3 mg/dL (8.4-10.2); CARBON DIOXIDE 21 mmol/L (22-30); CHLORIDE 104 mmol/L (98-107); GLUCOSE 114 mg/dL (75-110); TOTAL PROTEIN 7.9 g/dL (6.3-8.2)
[2019-12-21] MEDS ORDERED: NORMAL SALINE 1000 ML 1,000 ML IV ONE ×2 (13:25→16:27)
[2019-12-21] MEDS ORDERED: ONDANSETRON HCL INJ/PF 4 MG/2 ML SDV IV ONE (13:25)
[2019-12-21 13:47] LABS: APPEARANCE,URINE CLEAR; BILIRUBIN,URINE NEGATIVE (NEGATIVE); COLOR,URINE YELLOW; GLUCOSE, URINE NEGATIVE (NEGATIVE); KETONES,URINE NEGATIVE (NEGATIVE); LEUKOCYTE ESTERASE,URINE NEGATIVE (NEGATIVE); NITRITE,URINE NEGATIVE (NEGATIVE); PROTEIN,URINE 30 mg/dL (NEGATIVE); URINE SPECIFIC GRAVITY 1.025; UROBILINOGEN,URINE NEGATIVE mg/dL (<2.0)
[2019-12-21] MEDS ORDERED: FAMOTIDINE INJ/PF 20 MG/2 ML SDV IV ONE (14:04)
[2019-12-21 15:29] LABS: URINE BARBITURATES SCREEN NEGATIVE; URINE BENZODIAZEPINES SCREEN NEGATIVE; URINE COCAINE SCREEN NEGATIVE; URINE METHADONE SCREEN NEGATIVE; URINE PHENCYCLIDINE SCREEN NEGATIVE
[2019-12-21 15:33] LABS: URINE AMPHETAMINES SCREEN NEGATIVE
[2019-12-21 15:35] LABS: URINE MARIJUANA (THC) SCREEN UNCONFIRMED POSITIVE
[2019-12-21] MEDS ORDERED: METOCLOPRAMIDE HCL INJ/PF 10 MG/2 ML SDV IV ONE (16:26)
--- NOTE | 2019-12-21 16:28 | ER Document Report ---
ED GI/ - General Chief Complaint: Vomiting Stated Complaint: NAUSEA/VOMITING/DIARRHEA Time Seen by Provider: 12/21/19 12:37 Primary Care Provider: CATRACHO BURDEN DO [Primary Care Provider] - Follow up in 3-5 days Notes: Patient is a 19-year-old male who presents emergency department with a chief complaint of nausea and vomiting. He states that he is slight abdominal pain to his left upper abdomen, but it is mainly his nausea and vomiting that is causing him to have pain. Patient denies any past medical history. He smokes marijuana. TRAVEL OUTSIDE OF THE [place] IN LAST 30 DAYS: No - Related Data Allergies/Adverse Reactions: No Known Allergies Allergy (Verified 06/05/19 22:53) Past Medical History - Social History Smoking Status: Current Some Day Smoker Frequency of alcohol use: Occasional Drug Abuse: None Family History: Reviewed & Not Pertinent - Past Medical History Cardiac Medical History: Denies: Hx Coronary Artery Disease, Hx DVT, Hx Hypercholesterolemia, Hx Hypertension, Hx Pulmonary Embolism Pulmonary Medical History: Denies: Hx Asthma, Hx COPD Neurological Medical History: Denies: Hx Seizures Endocrine Medical History: Denies: Hx Diabetes Mellitus Type 1, Hx Hyperthyroidism, Hx Hypothyroidism Renal/ Medical History: Denies: Hx Peritoneal Dialysis GI Medical History: Denies: Hx Cirrhosis, Hx Crohn's Disease, Hx Gastroesophageal Reflux Disease, Hx Hepatitis, Hx Ulcerative Colitis Musculoskeletal Medical History: Denies Hx Arthritis, Denies Hx Gout, Reports Hx Musculoskeletal Trauma Skin Medical History: Denies Hx Eczema, Denies Hx Psoriasis Psychiatric Medical History: Reports: Hx Attention Deficit Hyperactivity Disorder Traumatic Medical History: Reports: Hx Fractures - open ankle fracture Infectious Medical History: Denies: Hx Hepatitis Past Surgical History: Reports: Hx Orthopedic Surgery - ORIF ankle - Immunizations Immunizations up to date: Yes Hx Diphtheria, Pertussis, Tetanus Vaccination: Yes Review of Systems - Review of Systems Notes: REVIEW OF SYSTEMS: CONSTITUTIONAL : Denies recent illness. Denies recent unintentional weight loss. Denies fever, chills, or sweats. EENT: Denies eye, ear, throat, or mouth pain, discharge, or symptoms. Denies nasal or sinus congestion. CARDIOVASCULAR: Denies chest pain. RESPIRATORY: Denies shortness of breath, cough, congestion, difficulty breathing, or wheezing. GASTROINTESTINAL: See HPI. GENITOURINARY: Denies difficulty urinating, burning, blood in urine, urgency or frequency. MUSCULOSKELETAL: Denies neck and back pain. Denies joint pain or swelling. SKIN: Denies rash, itchiness, or lesions HEMATOLOGIC : Denies easy bruising or bleeding. LYMPHATIC: Denies swollen, painful, enlarged glands. NEUROLOGICAL: Denies no numbness or tingling denies weakness. Denies headache. Denies altered mental status. Denies alteration in speech. PSYCHIATRIC: Denies stress, anxiety, alteration in sleep patterns, or depression. All other systems reviewed and negative. Physical Exam - Vital signs Vitals: Temp Pulse Resp BP Pulse Ox 98.5 F 67 18 150/77 H 100 12/21/19 12:06 12/21/19 12:06 12/21/19 12:06 12/21/19 12:06 12/21/19 12:06 - Notes Notes: PHYSICAL EXAMINATION: GENERAL: Appears well, healthy, well-nourished, no acute distress. HEAD: Normocephalic, atraumatic. EYES: PERRL, conjunctiva normal, all extraocular movements intact, sclera nonicteric ENT: Moist mucous membranes. NECK: Supple, no noticeable swelling, redness, rash. Normal range of motion. LUNGS: Equal breath sounds bilaterally and clear to auscultation. No wheezes rales or rhonchi. CARDIOVASCULAR: S1-S2, regular rate, regular rhythm. Radial pulses 2+, normal. ABDOMEN: Normoactive bowel sounds. Soft, tender left upper abdomen, no guarding, no rebound tenderness, and no masses palpated. EXTREMITIES: Normal strength and range of motion, no pitting or edema. No cyanosis. NEUROLOGICAL: Moves all extremities upon command. Strength 5/5 in all extremities. PSYCH: Normal mood, normal affect. SKIN: Warm, dry. No rash, lesions, ulcerations noted. Normal skin turgor. Course - Re-evaluation Re-evalutation: 12/21/19 16:28 Reevaluated patient and he still continues to be nauseous and vomit. Will order another liter of fluids and give him Reglan and will reevaluate. 12/21/19 18:35 Patient states that he feels better after receiving a second liter of fluids and Reglan. Will send him home with Reglan. Follow-up precautions were given. Verbal discharge instructions were given to the patient. They verbalized understanding. They are stable for discharge. - Vital Signs Vital signs: Temp Pulse Resp BP Pulse Ox 98.2 F 70 17 137/78 H 99 12/21/19 19:03 12/21/19 19:03 12/21/19 19:03 12/21/19 19:03 12/21/19 19:03 - Laboratory Result Diagrams: 12/21/19 12:00 12/21/19 12:00 Laboratory results interpreted by me: 12/21/19 12/21/19 12/21/19 12:00 12:00 13:15 WBC 3.6 L Eos % (Auto) 10.3 H Absolute Neuts (auto) 1.5 L Seg Neutrophils % 41.1 L Carbon Dioxide 21 L Glucose 114 H Calcium 10.3 H Albumin 5.2 H Urine Protein 30 H Discharge - Discharge Clinical Impression: Nausea and vomiting Qualifiers: Vomiting type: unspecified Vomiting Intractability: unspecified Qualified Code(s): R11.2 - Nausea with vomiting, unspecified Condition: Stable Disposition: HOME, SELF-CARE Instructions: Intravenous (IV) Fluids ([facility]), Reglan (REPLACED BY [facility]) Additional Instructions: You were seen today in the emergency department for nausea and vomiting. The most likely cause of your nausea and vomiting is your marijuana use, as you have been here before for the same thing. Please stop using marijuana. Take Reglan as needed for nausea or vomiting. Prescriptions: Metoclopramide HCl [Reglan 10 mg Tablet] 1 - 2 tab PO ASDIR PRN #25 tablet PRN Reason: Referrals: CATRACHO BURDEN DO [Primary Care Provider] - Follow up in 3-5 days
[2019-12-21 19:04] VITALS: BP 137/78
== END 2019-12-21 19:08 | disposition home or self-care (01) ==
LOC: ER 11:38
DX: R11.2 Nausea with vomiting, unspecified (principal); R19.7 Diarrhea, unspecified; R10.12 Left upper quadrant pain; F12.10 Cannabis abuse, uncomplicated; F17.200 Nicotine dependence, unspecified, uncomplicated
CPT/HCPCS: 99284; 96361; 96374; 96375; 36415; 83690; 85025; 80053; 81001; 80307; J2765; J2405; J7030; S0028

== ENCOUNTER 2019-12-23 08:04 | Emergency (ER) | payer MEDICAID ==
[2019-12-23] MEDS ORDERED: NORMAL SALINE 1000 ML 1,000 ML IV ONE (09:32)
[2019-12-23] MEDS ORDERED: ONDANSETRON 4 MG TAB.RAPDIS PO ONE (09:32)
[2019-12-23 10:39] LABS: ABSOLUTE LYMPHOCYTES (AUTO) 1.4 10^3/uL (0.5-4.7); ABSOLUTE MONOCYTES (AUTO) 0.9 10^3/uL (0.1-1.4); ABSOLUTE NEUT (AUTO) 4.8 10^3/uL (1.7-8.2); BASOPHILS % (AUTO) 0.3 % (0-2); EOSINOPHILS % (AUTO) 0.2 % (0-6); LYMPHOCYTES % (AUTO) 19.4 % (13-45); MEAN CORPUSCULAR HEMOGLOBIN 30.7 pg (27.0-33.4); MEAN CORPUSCULAR HGB CONC 34.9 g/dL (32.0-36.0); MEAN CORPUSCULAR VOLUME 88 fl (80-97); MONOCYTES % (AUTO) 12.4 % (3-13); PLATELET COUNT 261 10^3/uL (150-450); RED BLOOD COUNT 6.27 10^6/uL (4.35-5.55); RED CELL DISTRIBUTION WIDTH 13.7 % (11.5-14.0); SEGMENTED NEUTROPHILS % (AUTO) 67.7 % (42-78); TOTAL CELLS COUNTED % (AUTO) 100 %; WHITE BLOOD COUNT 7.1 10^3/uL (4.0-10.5)
[2019-12-23 10:44] LABS: ALKALINE PHOSPHATASE 103 U/L (38-126); ANION GAP 19 (5-19); ASPARTATE AMINO TRANSFERASE 40 U/L (17-59); BILIRUBIN,DIRECT 0.2 mg/dL (0.0-0.4); BILIRUBIN,TOTAL 1.7 mg/dL (0.2-1.3); BLOOD UREA NITROGEN 19 mg/dL (7-20); CALCIUM 11.3 mg/dL (8.4-10.2); CARBON DIOXIDE 29 mmol/L (22-30); CHLORIDE 94 mmol/L (98-107); GLUCOSE 101 mg/dL (75-110); POTASSIUM 4.6 mmol/L (3.6-5.0)
[2019-12-23 10:45] LABS: HEMATOCRIT 55.2 % (37.9-51.0)
[2019-12-23 10:48] LABS: HEMOGLOBIN 19.2 g/dL (13.5-17.0)
[2019-12-23 11:07] LABS: APPEARANCE,URINE SLIGHTLY-CLOUDY; BILIRUBIN,URINE NEGATIVE (NEGATIVE); COLOR,URINE AMBER; GLUCOSE, URINE NEGATIVE (NEGATIVE); KETONES,URINE 20 mg/dL (NEGATIVE); PROTEIN,URINE 100 mg/dL (NEGATIVE); URINE SPECIFIC GRAVITY 1.038; UROBILINOGEN,URINE NEGATIVE mg/dL (<2.0)
--- NOTE | 2019-12-23 12:22 | RADIOLOGY REPORT (SQ) ---
EXAM DESCRIPTION: CT ABD/PELVIS NO ORAL OR IV IMAGES COMPLETED DATE/TIME: 12/23/2019 12:03 pm REASON FOR STUDY: diffuse abd pain COMPARISON: None. TECHNIQUE: CT scan of the abdomen and pelvis performed without intravenous or oral contrast. Images reviewed with lung, soft tissue, and bone windows. Reconstructed coronal and sagittal MPR images revi ewed. All images stored on PACS. All CT scanners at this facility use dose modulation, iterative reconstruction, and/or weight based d osing when appropriate to reduce radiation dose to as low as reasonably achievable (ALARA). [facility]: Dose Right [facility]: CareDose [facility]: Dose Right [facility]: Teradose 4D [facility]: Smart TourNative RADIATION DOSE: CT Rad equipment meets quality standard of care and radiation dose reduction techniq ues were employed. CTDIvol: 4.8 mGy. DLP: 262 mGy-cm.mGy. LIMITATIONS: Study is limited by lack of oral on IV contrast. The patient has little retro or intra peritoneal fat. FINDINGS: LOWER CHEST: No significant findings. No nodules or infiltrates. NON-CONTRASTED LIVER, SPLEEN, ADRENALS: Evaluation limited by lack of IV contrast. No identified sign ificant masses. PANCREAS: No masses. No peripancreatic inflammatory changes. GALLBLADDER: No identified stones by CT criteria. No inflammatory changes to suggest cholecystitis. RIGHT KIDNEY AND URETER: No suspicious masses. Assessment limited by lack of IV contrast. No signif icant calcifications. No hydronephrosis or hydroureter. LEFT KIDNEY AND URETER: No suspicious masses. Assessment limited by lack of IV contrast. No signifi cant calcifications. No hydronephrosis or hydroureter. AORTA AND RETROPERITONEUM: No aneurysm. No retroperitoneal masses or adenopathy. BOWEL AND PERITONEAL CAVITY: No obvious masses or inflammatory changes. No free fluid. APPENDIX: Normal. PELVIS, BLADDER, AND ABDOMINAL WALL:No abnormal masses. No free fluid. Bladder normal. BONES: No significant findings. OTHER: No other significant finding. IMPRESSION: NO SIGNIFICANT OR ACUTE PROCESS IN THE ABDOMEN OR PELVIS. COMMENT: Quality ID # [id number]: Final reports with documentation of one or more dose reduction techniques (e.g., Automated exposure control, adjustment of the mA and/or kV according to patient size, use of iterative reconstruction technique) TECHNICAL DOCUMENTATION: JOB ID: [id number] [employer]- All Rights Reserved Reading location - IP/workstation name: [email or web address]
--- NOTE | 2019-12-23 12:31 | ER Document Report ---
ED General - General Chief Complaint: Nausea/Vomiting Stated Complaint: NAUSEA,VOMITING Time Seen by Provider: 12/23/19 09:20 Primary Care Provider: CATRACHO BURDEN DO [Primary Care Provider] - Follow up as needed Mode of Arrival: Ambulatory Information source: Patient TRAVEL OUTSIDE OF THE [place] IN LAST 30 DAYS: No - HPI Notes: Patient presents with severe nausea vomiting. He states he has not had diarrhea. He also states that he has had significantly decreased appetite. He states has been going on for a little more than a week. He states he has been to the emergency department recently but does not feel any better so he returns. He denies any Covid exposures. He denies any significant abdominal pain. He denies any fevers or chills. His nausea has been relatively constant. Nothing makes it better or worse. It is been moderate to severe. - Related Data Allergies/Adverse Reactions: No Known Allergies Allergy (Verified 06/05/19 22:53) Past Medical History - General Information source: Patient - Social History Smoking Status: Current Every Day Smoker Frequency of alcohol use: None Drug Abuse: None Family History: Reviewed & Not Pertinent Patient has homicidal ideation: No - Past Medical History Cardiac Medical History: Denies: Hx Coronary Artery Disease, Hx DVT, Hx Hypercholesterolemia, Hx Hypertension, Hx Pulmonary Embolism Pulmonary Medical History: Denies: Hx Asthma, Hx COPD Neurological Medical History: Denies: Hx Seizures Endocrine Medical History: Denies: Hx Diabetes Mellitus Type 1, Hx Hyperthyroidism, Hx Hypothyroidism Renal/ Medical History: Denies: Hx Peritoneal Dialysis GI Medical History: Denies: Hx Cirrhosis, Hx Crohn's Disease, Hx Gastroesophageal Reflux Disease, Hx Hepatitis, Hx Ulcerative Colitis Musculoskeletal Medical History: Denies Hx Arthritis, Denies Hx Gout, Reports Hx Musculoskeletal Trauma Skin Medical History: Denies Hx Eczema, Denies Hx Psoriasis Psychiatric Medical History: Reports: Hx Attention Deficit Hyperactivity Disorder Traumatic Medical History: Reports: Hx Fractures - open ankle fracture Infectious Medical History: Denies: Hx Hepatitis Past Surgical History: Reports: Hx Orthopedic Surgery - ORIF ankle - Immunizations Immunizations up to date: Yes Hx Diphtheria, Pertussis, Tetanus Vaccination: Yes Review of Systems - Review of Systems Constitutional: Malaise, Weakness. denies: Chills, Fever Cardiovascular: denies: Chest pain, Palpitations Respiratory: denies: Cough, Short of breath -: Yes All other systems reviewed and negative Physical Exam - Vital signs Vitals: Temp Pulse Resp BP Pulse Ox 98.4 F 65 16 145/84 H 99 12/23/19 08:09 12/23/19 08:09 12/23/19 08:09 12/23/19 08:09 12/23/19 08:09 Interpretation: Normal - General General appearance: Appears well, Alert - HEENT Head: Normocephalic, Atraumatic Eyes: Normal Pupils: PERRL - Respiratory Respiratory status: No respiratory distress Chest status: Nontender Breath sounds: Normal Chest palpation: Normal - Cardiovascular Rhythm: Regular Heart sounds: Normal auscultation Murmur: No - Abdominal Inspection: Normal Distension: No distension Bowel sounds: Normal Tenderness: Tender - Mild diffuse Organomegaly: No organomegaly - Back Back: Normal, Nontender - Extremities General upper extremity: Normal inspection, Nontender, Normal color, Normal ROM, Normal temperature General lower extremity: Normal inspection, Nontender, Normal color, Normal ROM, Normal temperature, Normal weight bearing. No: Ritika's sign - Neurological Neuro grossly intact: Yes Cognition: Normal Orientation: AAOx4 [place] Coma Scale Eye Opening: Spontaneous Amgdi Coma Scale Verbal: Oriented Magdi Coma Scale Motor: Obeys Commands Magdi Coma Scale Total: 15 Speech: Normal Motor strength normal: LUE, RUE, LLE, RLE Sensory: Normal - Psychological Associated symptoms: Normal affect, Normal mood - Skin Skin Temperature: Warm Skin Moisture: Dry Skin Color: Normal Course - Re-evaluation Re-evalutation: 12/23/19 12:28 Patient presents with severe nausea vomiting. Exam is unremarkable other than some mild abdominal tenderness. CT exam shows no acute process. Laboratories are consistent with dehydration. Patient has been rehydrated with fluids and given antiemetics. Patient states he now feels better. I will discharge the patient home with antiemetics. He is also been tested for Covid here and educated about the need to isolate. - Vital Signs Vital signs: Temp Pulse Resp BP Pulse Ox 98.4 F 65 16 145/84 H 99 12/23/19 08:09 12/23/19 08:09 12/23/19 08:09 12/23/19 08:09 12/23/19 08:09 - Laboratory Result Diagrams: 12/23/19 09:50 12/23/19 09:50 Laboratory results interpreted by me: 12/23/19 12/23/19 12/23/19 09:50 09:50 10:45 RBC 6.27 H Hgb 19.2 H D Hct 55.2 H Chloride 94 L Calcium 11.3 H Total Bilirubin 1.7 H Total Protein 10.0 H Albumin 6.0 H Urine Protein 100 H Urine Ketones 20 H - Diagnostic Test Radiology reviewed: Image reviewed, Reports reviewed Discharge - Discharge Clinical Impression: Person under investigation for COVID-19 Nausea & vomiting Qualifiers: Vomiting type: unspecified Vomiting Intractability: intractable Qualified Code(s): R11.2 - Nausea with vomiting, unspecified Condition: Stable Disposition: HOME, SELF-CARE Instructions: COVID-19 Guidance for Persons Under Investigation, Intravenous (IV) Fluids ([facility]), Vomiting ([facility]), Reglan ([facility]), Antinausea Medication ([facility]) Prescriptions: Metoclopramide HCl [Reglan 10 mg Tablet] 1 tab PO Q6 PRN #25 tablet PRN Reason: For Nausea/Vomiting Forms: Return to Work Referrals: CATRACHO BURDEN DO [Primary Care Provider] - Follow up in 3-5 days
[2019-12-23 12:44] VITALS: BP 144/83
== END 2019-12-23 12:45 | disposition home or self-care (01) ==
LOC: ER 08:04
DX: R11.2 Nausea with vomiting, unspecified (principal); Z20.828 Contact with and (suspected) exposure to other viral communicable diseases; R10.819 Abdominal tenderness, unspecified site; F17.200 Nicotine dependence, unspecified, uncomplicated
CPT/HCPCS: 99285; 96360; 36415; 85025; 87635; 80053; 81001; 74176; S0119; J7030; C9803

== ENCOUNTER 2019-12-24 18:30 | Emergency (ER) | payer MEDICAID ==
[2019-12-24] MEDS ORDERED: NORMAL SALINE 1000 ML 1,000 ML IV ONE ×2 (18:58→20:38)
[2019-12-24] MEDS ORDERED: ONDANSETRON HCL INJ/PF 4 MG/2 ML SDV IV ONE (18:58)
--- NOTE | 2019-12-24 18:58 | ER Document Report ---
ED Medical Screen (RME) - General Chief Complaint: Nausea/Vomiting Stated Complaint: NAUSEA/VOMINT Time Seen by Provider: 12/24/19 18:56 Primary Care Provider: CATRACHO BURDEN DO [Primary Care Provider] - Follow up tomorrow Mode of Arrival: Wheelchair Information source: Patient Notes: 19-year-old female presents to ED for pain of abdominal pain with nausea and vomiting for the past week. Patient denies any diarrhea. Patient denies any fever. Patient reports recently presented to the emergency department with similar symptoms. Patient does have a history of marijuana use. Bowel sounds are present, abdomen soft tender to palpation I have greeted and performed a rapid initial assessment of this patient. A comprehensive ED assessment and evaluation of the patient, analysis of test results and completion of medical decision making process will be conducted by an additional ED providers. TRAVEL OUTSIDE OF THE [place] IN LAST 30 DAYS: No - Related Data Allergies/Adverse Reactions: No Known Allergies Allergy (Verified 06/05/19 22:53) Past Medical History - General Information source: Patient - Social History Cigarette use (# per day): No Frequency of alcohol use: None Drug Abuse: Marijuana Lives with: Family Family history: Reviewed & Not Pertinent - Past Medical History Cardiac Medical History: Reports: None Pulmonary Medical History: Reports: None EENT Medical History: Reports: None Neurological Medical History: Reports: None Endocrine Medical History: Reports: None Renal/ Medical History: Reports: None. Denies: Hx Peritoneal Dialysis Malignancy Medical History: Reports None GI Medical History: Reports: None Musculoskeltal Medical History: Reports Hx Musculoskeletal Trauma Skin Medical History: Reports None Psychiatric Medical History: Reports: Hx Attention Deficit Hyperactivity Disorder Traumatic Medical History: Reports: Hx Fractures - open ankle fracture Infectious Medical History: Reports: None Past Surgical History: Reports: Hx Orthopedic Surgery - ORIF ankle - Immunizations Immunizations up to date: Yes Hx Diphtheria, Pertussis, Tetanus Vaccination: Yes Physical Exam - Vital signs Vitals: Temp Pulse Resp BP Pulse Ox 98.8 F 86 16 134/74 H 100 12/24/19 18:40 12/24/19 18:40 12/24/19 18:40 12/24/19 18:40 12/24/19 18:40 Course - Vital Signs Vital signs: Temp Pulse Resp BP Pulse Ox 98.8 F 70 18 128/63 H 100 12/24/19 18:40 12/24/19 21:40 12/24/19 21:40 12/24/19 21:40 12/24/19 21:40 - Laboratory Result Diagrams: 12/24/19 20:07 12/24/19 20:07 Laboratory results interpreted by me: 12/24/19 12/24/19 12/24/19 19:30 20:07 20:07 RBC 5.73 H Hgb 17.6 H [place] % (Auto) 13.2 H Potassium 3.4 L Chloride 92 L Carbon Dioxide 31 H BUN 24 H Calcium 10.6 H Total Bilirubin 2.5 H Total Protein 9.5 H Albumin 5.6 H Urine Protein 100 H Urine Ketones 80 H Urine Urobilinogen 4.0 H Ur Leukocyte Esterase TRACE H Doctor's Discharge - Discharge Clinical Impression: Dehydration, Epigastric abdominal pain, Nausea and vomiting, Marijuana abuse Condition: Stable Disposition: HOME, SELF-CARE Instructions: Abdominal Pain ([facility]), Antinausea Medication ([facility]), Intravenous (IV) Fluids ([facility]), Vomiting ([facility]) Additional Instructions: Return immediately for any new or worsening symptoms Followup with your primary care provider, call tomorrow to make a followup appointment Avoid use of marijuana Take your medication that you have at home as prescribed Referrals: CATRACHO BURDEN, [Primary Care Provider] - Follow up tomorrow
[2019-12-24] MEDS ORDERED: DIPHENHYDRAMINE HCL 50 MG/ML VIAL IV ONE (19:01)
[2019-12-24] MEDS ORDERED: METOCLOPRAMIDE HCL INJ/PF 10 MG/2 ML SDV IV ONE (19:01)
--- NOTE | 2019-12-24 19:29 | ER Document Report ---
ED GI/ - General Chief Complaint: Nausea/Vomiting Stated Complaint: NAUSEA/VOMINT Time Seen by Provider: 12/24/19 18:56 Primary Care Provider: CATRACHO BURDEN DO [Primary Care Provider] - Follow up tomorrow Mode of Arrival: Wheelchair Information source: Patient Notes: Patient presents complaining of abdominal pain with nausea and vomiting for the past week. Patient denies any diarrhea. Patient denies any fever. Patient reports recently presented to the emergency department with similar symptoms. Patient does have a history of marijuana use. TRAVEL OUTSIDE OF THE [place] IN LAST 30 DAYS: No - HPI Patient complains to provider of: Abdominal pain, Vomiting Onset: Last week Timing/Duration: Persistent Quality of pain: Achy Pain Level: 3 Location: Epigastric Associated symptoms: Nausea, Vomiting. denies: Constipation, Diarrhea, Urinary hesitancy, Urinary frequency, Urinary retention, Urinary urgency Exacerbated by: Denies Relieved by: Denies Similar symptoms previously: Yes Recently seen / treated by doctor: Yes - Related Data Allergies/Adverse Reactions: No Known Allergies Allergy (Verified 06/05/19 22:53) Past Medical History - General Information source: Patient - Social History Smoking Status: Never Smoker Cigarette use (# per day): No Frequency of alcohol use: None Drug Abuse: Marijuana Occupation: None Lives with: Family Family History: Reviewed & Not Pertinent - Past Medical History Cardiac Medical History: Reports: None Pulmonary Medical History: Reports: None EENT Medical History: Reports: None Neurological Medical History: Reports: None Endocrine Medical History: Reports: None Renal/ Medical History: Reports: None. Denies: Hx Peritoneal Dialysis Malignancy Medical History: Reports None GI Medical History: Reports: None Musculoskeletal Medical History: Reports Hx Musculoskeletal Trauma Skin Medical History: Reports None Psychiatric Medical History: Reports: Hx Attention Deficit Hyperactivity Disorder Traumatic Medical History: Reports: Hx Fractures - open ankle fracture Infectious Medical History: Reports: None Past Surgical History: Reports: Hx Orthopedic Surgery - ORIF ankle - Immunizations Immunizations up to date: Yes Hx Diphtheria, Pertussis, Tetanus Vaccination: Yes Review of Systems - Review of Systems Constitutional: No symptoms reported. denies: Fever EENT: No symptoms reported Cardiovascular: No symptoms reported. denies: Chest pain Respiratory: No symptoms reported. denies: Cough, Short of breath Gastrointestinal: Abdominal pain, Nausea, Vomiting. denies: Diarrhea Genitourinary: No symptoms reported. denies: Dysuria, Flank pain Male Genitourinary: No symptoms reported Musculoskeletal: No symptoms reported. denies: Back pain Skin: No symptoms reported Hematologic/Lymphatic: No symptoms reported Neurological/Psychological: No symptoms reported Physical Exam - Vital signs Vitals: Temp Pulse Resp BP Pulse Ox 98.8 F 86 16 134/74 H 100 12/24/19 18:40 12/24/19 18:40 12/24/19 18:40 12/24/19 18:40 12/24/19 18:40 - Notes Notes: PHYSICAL EXAMINATION: GENERAL: Well-appearing and in no acute distress. HEAD: Atraumatic, normocephalic. EYES: sclera anicteric, conjunctiva are normal. ENT: nares patent. Moist mucous membranes. NECK: Normal range of motion, supple without lymphadenopathy LUNGS: CTAB and equal. No wheezes rales or rhonchi. HEART: Regular rate and rhythm without murmurs ABDOMEN: Soft, gastric tenderness, normal bowel sounds, no guarding. EXTREMITIES: Normal range of motion, no pitting edema. No cyanosis. BACK: No CVA tenderness NEUROLOGICAL: Cranial nerves grossly intact. Normal speech. Normal gait. PSYCH: Normal mood, normal affect. SKIN: Warm, Dry, normal turgor, no rashes or lesions noted Course - Re-evaluation Re-evalutation: 12/24/19 21:34 Patient tolerating oral fluids without emesis. Patient encouraged to avoid use of marijuana as he has had problems with vomiting and abdominal pain in the past but he has been told may be attributed to his marijuana use. Patient nontoxic in appearance. Patient agreeable with discharge plan of care. - Vital Signs Vital signs: Temp Pulse Resp BP Pulse Ox 98.8 F 70 18 128/63 H 100 12/24/19 18:40 12/24/19 21:40 12/24/19 21:40 12/24/19 21:40 12/24/19 21:40 - Laboratory Result Diagrams: 12/24/19 20:07 12/24/19 20:07 Laboratory results interpreted by me: 12/24/19 12/24/19 12/24/19 19:30 20:07 20:07 RBC 5.73 H Hgb 17.6 H [place] % (Auto) 13.2 H Potassium 3.4 L Chloride 92 L Carbon Dioxide 31 H BUN 24 H Calcium 10.6 H Total Bilirubin 2.5 H Total Protein 9.5 H Albumin 5.6 H Urine Protein 100 H Urine Ketones 80 H Urine Urobilinogen 4.0 H Ur Leukocyte Esterase TRACE H Labs- All tests 24 hr 12/24/19 12/24/19 12/24/19 19:30 19:30 20:07 WBC 6.3 RBC 5.73 H Hgb 17.6 H Hct 50.1 MCV 87 MCH 30.7 MCHC 35.2 RDW 13.2 Plt Count 235 Lymph % (Auto) 27.8 [place] % (Auto) 13.2 H Eos % (Auto) 0.2 Baso % (Auto) 0.6 Absolute Neuts (auto) 3.7 Absolute Lymphs (auto) 1.8 Absolute Monos (auto) 0.8 Absolute Eos (auto) 0.0 Absolute Basos (auto) 0.0 Seg Neutrophils % 58.2 Sodium Potassium Chloride Carbon Dioxide Anion Gap BUN Creatinine Est GFR ( Amer) Est GFR (MDRD) Non-Af Glucose Calcium Total Bilirubin Direct Bilirubin Neonat Total Bilirubin Neonat Direct Bilirubin Neonat Indirect Bili AST ALT Alkaline Phosphatase Total Protein Albumin Lipase Urine Color ZAKI Urine Appearance SLIGHTLY-CLOUDY Urine pH 6.0 Ur Specific [place] 1.032 Urine Protein 100 H Urine Glucose (UA) NEGATIVE Urine Ketones 80 H Urine Blood NEGATIVE Urine Nitrite NEGATIVE Urine Bilirubin NEGATIVE Urine Urobilinogen 4.0 H Ur Leukocyte Esterase TRACE H Urine WBC (Auto) 10 Urine RBC (Auto) 1 U Hyaline Cast (Auto) 1 Squamous Epi Cells Auto <1 Urine Mucus (Auto) MANY Urine Ascorbic Acid NEGATIVE Urine Opiates Screen NEGATIVE Urine Methadone Screen NEGATIVE Ur Barbiturates Screen NEGATIVE Ur Phencyclidine Scrn NEGATIVE Ur Amphetamines Screen NEGATIVE U Benzodiazepines Scrn NEGATIVE Urine Cocaine Screen NEGATIVE U Marijuana (THC) Screen UNCONFIRMED POSITIVE 12/24/19 20:07 WBC RBC Hgb Hct MCV MCH MCHC RDW Plt Count Lymph % (Auto) [place] % (Auto) Eos % (Auto) Baso % (Auto) Absolute Neuts (auto) Absolute Lymphs (auto) Absolute Monos (auto) Absolute Eos (auto) Absolute Basos (auto) Seg Neutrophils % Sodium 140.7 Potassium 3.4 L Chloride 92 L Carbon Dioxide 31 H Anion Gap 18 BUN 24 H Creatinine 1.22 Est GFR ( Amer) > 60 Est GFR (MDRD) Non-Af > 60 Glucose 92 Calcium 10.6 H Total Bilirubin 2.5 H Direct Bilirubin 0.4 Neonat Total Bilirubin Not Reportable Neonat Direct Bilirubin Not Reportable Neonat Indirect Bili Not Reportable AST 38 ALT 24 Alkaline Phosphatase 102 Total Protein 9.5 H Albumin 5.6 H Lipase 167.3 Urine Color Urine Appearance Urine pH Ur Specific [place] Urine Protein Urine Glucose (UA) Urine Ketones Urine Blood Urine Nitrite Urine Bilirubin Urine Urobilinogen Ur Leukocyte Esterase Urine WBC (Auto) Urine RBC (Auto) U Hyaline Cast (Auto) Squamous Epi Cells Auto Urine Mucus (Auto) Urine Ascorbic Acid Urine Opiates Screen Urine Methadone Screen Ur Barbiturates Screen Ur Phencyclidine Scrn Ur Amphetamines Screen U Benzodiazepines Scrn Urine Cocaine Screen U Marijuana (THC) Screen Discharge - Discharge Clinical Impression: Dehydration, Epigastric abdominal pain, Marijuana abuse Nausea and vomiting Qualifiers: Vomiting type: unspecified Vomiting Intractability: non-intractable Qualified Code(s): R11.2 - Nausea with vomiting, unspecified Condition: Stable Disposition: HOME, SELF-CARE Instructions: Abdominal Pain ([facility]), Antinausea Medication ([facility]), Intravenous (IV) Fluids ([facility]), Vomiting ([facility]) Additional Instructions: Return immediately for any new or worsening symptoms Followup with your primary care provider, call tomorrow to make a followup appointment Avoid use of marijuana Take your medication that you have at home as prescribed Referrals: CATRACHO BURDEN DO [Primary Care Provider] - Follow up tomorrow
[2019-12-24 19:52] LABS: APPEARANCE,URINE SLIGHTLY-CLOUDY; BILIRUBIN,URINE NEGATIVE (NEGATIVE); COLOR,URINE AMBER; GLUCOSE, URINE NEGATIVE (NEGATIVE); KETONES,URINE 80 mg/dL (NEGATIVE); LEUKOCYTE ESTERASE,URINE TRACE (NEGATIVE); NITRITE,URINE NEGATIVE (NEGATIVE); PROTEIN,URINE 100 mg/dL (NEGATIVE); URINE SPECIFIC GRAVITY 1.032
[2019-12-24 20:06] LABS: URINE AMPHETAMINES SCREEN NEGATIVE; URINE BARBITURATES SCREEN NEGATIVE; URINE BENZODIAZEPINES SCREEN NEGATIVE; URINE COCAINE SCREEN NEGATIVE; URINE METHADONE SCREEN NEGATIVE; URINE PHENCYCLIDINE SCREEN NEGATIVE
[2019-12-24 20:07] LABS: URINE MARIJUANA (THC) SCREEN UNCONFIRMED POSITIVE
[2019-12-24 20:26] LABS: ABSOLUTE LYMPHOCYTES (AUTO) 1.8 10^3/uL (0.5-4.7); ABSOLUTE MONOCYTES (AUTO) 0.8 10^3/uL (0.1-1.4); ABSOLUTE NEUT (AUTO) 3.7 10^3/uL (1.7-8.2); BASOPHILS % (AUTO) 0.6 % (0-2); EOSINOPHILS % (AUTO) 0.2 % (0-6); HEMATOCRIT 50.1 % (37.9-51.0); HEMOGLOBIN 17.6 g/dL (13.5-17.0); LYMPHOCYTES % (AUTO) 27.8 % (13-45); MEAN CORPUSCULAR HEMOGLOBIN 30.7 pg (27.0-33.4); MEAN CORPUSCULAR HGB CONC 35.2 g/dL (32.0-36.0); MEAN CORPUSCULAR VOLUME 87 fl (80-97); MONOCYTES % (AUTO) 13.2 % (3-13); PLATELET COUNT 235 10^3/uL (150-450); RED BLOOD COUNT 5.73 10^6/uL (4.35-5.55); RED CELL DISTRIBUTION WIDTH 13.2 % (11.5-14.0); SEGMENTED NEUTROPHILS % (AUTO) 58.2 % (42-78); TOTAL CELLS COUNTED % (AUTO) 100 %; WHITE BLOOD COUNT 6.3 10^3/uL (4.0-10.5)
[2019-12-24 20:39] LABS: ALBUMIN 5.6 g/dL (3.5-5.0); ALKALINE PHOSPHATASE 102 U/L (38-126); ANION GAP 18 (5-19); ASPARTATE AMINO TRANSFERASE 38 U/L (17-59); BILIRUBIN,DIRECT 0.4 mg/dL (0.0-0.4); BILIRUBIN,TOTAL 2.5 mg/dL (0.2-1.3); BLOOD UREA NITROGEN 24 mg/dL (7-20); CALCIUM 10.6 mg/dL (8.4-10.2); CARBON DIOXIDE 31 mmol/L (22-30); CHLORIDE 92 mmol/L (98-107); GLUCOSE 92 mg/dL (75-110); POTASSIUM 3.4 mmol/L (3.6-5.0); TOTAL PROTEIN 9.5 g/dL (6.3-8.2)
[2019-12-24] MEDS ORDERED: POTASSIUM CHLORIDE 10 MEQ TABLET.ER PO ONE (20:46)
[2019-12-24 21:43] VITALS: BP 128/63
== END 2019-12-24 21:49 | disposition home or self-care (01) ==
LOC: ER 18:30
DX: R11.2 Nausea with vomiting, unspecified (principal); R10.13 Epigastric pain; F12.10 Cannabis abuse, uncomplicated; E86.0 Dehydration
CPT/HCPCS: 99284; 96361; 96374; 96375; 36415; 87086; 83690; 85025; 80053; 81001; 80307; J1200; J2765; J2405; J7030